=== PATIENT | male | born 1965 | race Caucasian/White ===

== ENCOUNTER 2016-05-07 21:46 | Inpatient (IN) | payer OTHER, MEDICARE ==
[~2016-05-07] VITALS: Ht 170.2 cm; Wt 113.4 kg
[~2016-05-07 21:46] MED LIST: ALDACTONE 25 MG25 MG PO; APAP500 MG; ASPIRIN81 M4 PO; ATIVAN0.5 MG; CARVEDILOL12.5 MG PO; CARVEDILOL25 M1 PO; CLINDAMYCIN PHO60 M2 TOP; COLACE100 M1 PO; DEMADEX20 M1 PO; DEMADEX20 MG PO; FIBER500 MG PO; HYDRALAZINE HCL25 MG PO; ISORDIL; LISINOPRIL10 M1 PO; MAGNESIUM OXID400 MG PO; OMEPRAZOLE20 M3 PO; OXYCODONE5 MG PO; PERCOCET MONOGRA5 MG PO; POTASSIUM CHLO10 ME4 PO; PRINIVIL 5MG5 MG PO; SERTRALINE HCL100 MG PO; TRAZODONE HCL150 M1 PO; TRAZODONE HCL50 MG PO; VALIUM5 M1 PO; VALIUM5 M2 PO; VITAMIN D2000 UNI1 PO
--- NOTE | 2016-05-07 22:14 | NUR ---
PT TO ED C/O CENTER CHEST PAIN, CONSTANT FOR 90 MINS. STATES PAIN "STARTED LOW IN MY HEART AND NOW IT'S IN THE CENTER" DENIES N/V. C/O LIGHTHEADEDNESS. "I DRANK 2 SHOTS OF VODKA TO MAKE THE PAIN GO AWAY, IT DIDN'T HELP" PMH OF CHF, PANCREATITIS, ACUTE RENAL FAILURE, DIVERTICULITIS. FEELS THAT LEGS AND ABDOMEN ARE MORE SWOLLEN THAN NORMAL. "FEEL MORE PRESSURE ON MY LUNGS" O2 SAT 95% ON RA. NSR HR 89 ON EKG. BLOODS DRAWN BY [facility] IN TRIAGE: SST, LAV, BLUE AND DÍAZ
--- NOTE | 2016-05-07 22:18 | ED CARDIAC/CP/PALPITATIONS ---
History of Present Illness General Chief Complaint: Chest Pain Stated Complaint: CHEST PAIN/ABD PAIN Source: patient, family, old records, friend Exam Limitations: no limitations Allergies Coded Allergies: NO KNOWN ALLERGIES (12/09/15) Reconcile Medications Aspirin (Aspirin*) 81 MG TAB.CHEW 81 MG PO DAILY heart health Carvedilol 25 MG TABLET 1 TAB PO BID HEART (Reported) Cholecalciferol (Vitamin D3) (Vitamin D) (Unknown Strength) TABLET (Unknown Dose) PO DAILY SUPPLEMENT (Reported) Clindamycin Phosphate 60 ML SOLUTION 1 MAUREEN TOP DAILY AFFECTED AREA(S) ( Reported) apply to affected area(s) Diazepam (Valium) 5 MG TABLET 1 TAB PO PRN MUSCLE SPASMS (Reported) Docusate Sodium (Colace) 100 MG CAPSULE 1 CAP PO PRN STOOL SOFTENER (Reported ) HYDRALAZINE HCL (Hydralazine HCl) 25 MG TABLET 1 TAB PO TID HEART HEALTH ( Reported) Isosorbide Dinitrate (Isordil (Sorbitrate 20MG)) 20 MG TABLET 1 TAB TID HEART HEALTH (Reported) Lisinopril 10 MG TABLET 1 TAB PO DAILY BLOOD PRESSURE Magnesium Oxide 400 MG TABLET 1 TAB PO BID VITAMIN SUPPORT (Reported) Methylcellulose (Fiber) (Unknown Strength) TABLET (Unknown Dose) PO DAILY SUPPLEMENT (Reported) Omeprazole 20 MG TABLET.DR 1 TAB PO BID GI (Reported) Potassium Chloride 10 MEQ TABLET.ER 2 TAB PO BID SUPPLEMENT (Reported) Sertraline HCl 100 MG TABLET 1.5 TAB PO DAILY MENTAL HEALTH (Reported) Spironolactone (Aldactone 25 MG Tablet) 25 MG TABLET 0.5 TAB PO DAILY HEART HEALTH (Reported) Torsemide (Demadex) 20 MG TABLET 1 TAB PO PRN DIURETIC (Reported) Trazodone HCl 150 MG TABLET 1 TAB PO QHS SLEEP (Reported) Triage Note: PT TO ED C/O CENTER CHEST PAIN, CONSTANT FOR 90 MINS. STATES PAIN "STARTED LOW IN MY HEART AND NOW IT'S IN THE CENTER" DENIES N/V. C/O LIGHTHEADEDNESS. "I DRANK 2 SHOTS OF VODKA TO MAKE THE PAIN GO AWAY, IT DIDN'T HELP" PMH OF CHF, PANCREATITIS, ACUTE RENAL FAILURE, DIVERTICULITIS. FEELS THAT LEGS AND ABDOMEN ARE MORE SWOLLEN THAN NORMAL. "FEEL MORE PRESSURE ON MY LUNGS" O2 SAT 95% ON RA. NSR HR 89 ON EKG. BLOODS DRAWN BY [facility] IN TRIAGE: SST, LAV, BLUE AND DÍAZ Triage Nurses Notes Reviewed? yes Onset: Abrupt Duration: minute(s): (90), constant Timing: recent history Quality/Severity: moderate, aching, pressure Location: central Radiation: no radiation Activities at Onset: rest Nitro Today/Relief: no nitro taken today Aspirin Today: no aspirin today Associated Symptoms: LEG SWELLING HPI: 51 Year old male past medical history significant for alcohol and cocaine abuse, systolic congestive heart failure secondary to cardiomyopathy diagnosed in 2010, ? AICD/PPM placement in 2013, nonsustained NSVT, pulmonary hypertension, tricuspid regurgitation, sinus tachycardia % Emergency room complaining of left-sided substernal chest pain as nonradiating constant aching throbbing for the past 90 minutes. He denies any nausea vomiting dizziness lightheadedness or palpitations no shortness of breath cough. The patient states he had 2 shots of vodka in an attempt to make the pain go away which did not help. Patient's desktop support specialist is Dr. Ha. The patient states he was at rest watching TV when the symptoms began there are no modifying factors or associated symptoms however he does report that his legs have been more swollen over the past few days he has been compliant with all of his medication however did not take an aspirin today. (YVON LITTLE,ANDREW) Vital Signs & Intake/Output Vital Signs & Intake/Output Vital Signs Date Time Temp Pulse Resp B/P Pulse O2 O2 Flow FiO2 Ox Delivery Rate 05/07 2258 97.4 88 20 124/92 96 Room Air Room Air 05/07 2206 97.2 89 20 95 Room Air ED Intake and Output 05/08 0000 05/07 1200 Intake Total Output Total Balance Patient 250 lb Weight Past History Travel History Traveled to [place] past 21 day No Medical History Any Pertinent Medical History? 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 No (ANDREW JOY) Review of Systems Review of Systems Constitutional: Reports: see HPI. All Other Systems: Reviewed and Negative Comments Review of systems: See HPI, All other systems negative. Constitutional, no chills no fever, no malaise HEENT: No visual changes no sore throat no congestion, no ear pain Cardiovascular: chest pain , no palpitation , no orthopnea ankle swelling Skin, no jaundice no rashes, no change in skin Respiratory: No dyspnea no cough no sputum GI: No nausea no vomiting, no diarrhea, : No dysuria Muscle skeletal: No joint pain, no joint swelling, no back pain, Neurologic: No numbness, no headache Psych: No stress no anxiety Heme/endocrine: No bruising no bleeding Immunology: No lymphadenopathy, (ANDREW JOY) Physical Exam Physical Exam General Appearance: well developed/nourished, alert, awake Cardiovascular: regular rate/rhythm Comments: Well-developed well-nourished person in no acute distress HEENT: Normal EENT exam; PERRL, EOMI,HEAD is atraumatic. moist mucous membranes. Neck: Supple, no lymphadenopathy, normal range of motion Back: Nontender, no CVA tenderness. Full range of motion Cardiovascular: Regular rate and rhythms no murmurs rubs Respiratory: Chest nontender.There were no bony deformities, no asymmetry. No respiratory distress. Patient speaking in full complete sentences. Breath sounds clear to auscultation bilaterally: NO W/R/R Abdomen: Soft, nontender nondistended, no appreciable organomegaly. Normal bowel sounds. No rebound/guarding,No ascites. Extremity: No edema, full range of motion of extremities Neuro: Alert oriented x3, motor sensory normal. There were no obvious focal neurologic abnormalities. Skin: No appreciable rash on exposed skin, skin is warm and dry. Psych: Mood and affect is normal, memory and judgment is normal. Core Measures ACS in differential dx? Yes ASA ordered for poss ACS? Yes-ordered Severe Sepsis Present: No Septic Shock Present: No (YVON LITTLE,ANDREW) Progress Differential Diagnosis: AMI, aortic dissection, atrial fibrillation, cholecystitis, CHF/pulm edema, costochondritis, hyperkalemia, hypovolemia, hyperthyroid, hyperventilation, musculoskeletal pain, myocarditis, pancreatitis, pericarditis, pneumonia, pneumothorax, PSVT, pulmonary embolism, PUD/GERD, PVCs/ PACs, respiratory failure, rib fracture, sepsis, unstable angina, V-fib/V-Tach, WPW syndrome Diagnostic Imaging: Viewed by Me: Radiology Read, CT Scan. Discussed w/RAD: Radiology Read, CT Scan. Radiology Impression: PATIENT: AHSAN LOPEZ PRESENT AGE: 51 PATIENT ACCOUNT NO: [id number] : 67 LOCATION: ER ORDERING PHYSICIAN: KARLI WEN MD SERVICE DATE: 05/07/16 EXAM TYPE: RAD - XRY-CHEST XRAY, PA AND LATERAL EXAMINATION: XR CHEST CLINICAL INFORMATION: Chest pain. COMPARISON: Chest x-ray 12/09/2015. TECHNIQUE: PA and lateral views of the chest were obtained. FINDINGS: Left pectoral dual-lead pacemaker with intact leads project over the right atrium and right ventricle. ACDF hardware projects over the lower cervical and upper thoracic spine. Lungs are symmetrically inflated. No focal consolidation, pleural effusion, or pneumothorax. Cardiac silhouette size is normal. No acute osseous findings. Old healed fracture of the distal left clavicle. IMPRESSION: No acute radiographic process within the chest. DICTATED BY: KARLI AUGUSTINE MD DATE/TIME DICTATED:2256 ELECTRICIAN HELPER:LATASHA DATE/TIME TRANSCRIBED:05/07/162256 CONFIDENTIAL, DO NOT COPY WITHOUT APPROPRIATE AUTHORIZATION. <Electronically signed in Other Vendor System> SIGNED BY: KARLI AUGUSTINE MD 05/07/167, PATIENT: AHSAN LOPEZ PRESENT AGE: 51 PATIENT ACCOUNT NO: [id number] : 67 LOCATION: ER ORDERING PHYSICIAN: ANDREW LITTLE SERVICE DATE: 05/07/16 EXAM TYPE: CAT - CT ABD & PELVIS W IV CONTRAST EXAMINATION: CT ABDOMEN AND PELVIS WITH CONTRAST CLINICAL INFORMATION: Left upper quadrant pain, rule out pancreatitis. COMPARISON: Abdominal ultrasound 12/11/2015. TECHNIQUE: Multidetector volumetric imaging was performed of the abdomen and pelvis before and after the IV administration of 100 mL of Omnipaque 300 intravenous contrast. Sagittal and coronal reformatted images were obtained on the technologist's workstation. FINDINGS: Pacemaker leads are partially imaged. The lung bases are clear. There is diffuse hepatic steatosis. There are inflammatory changes surrounding the pancreatic head extending inferiorly along the anterior margin of the second and third portions of the duodenum which do not appear thick-walled. Findings are most suggestive of acute pancreatitis. The pancreatic duct is normal in caliber and no obstructing calculi are identified. The spleen is enlarged, measuring 21 cm in AP diameter. The adrenal glands and gallbladder are normal. The kidneys exhibit symmetric nephrograms without evidence of hydronephrosis or nephrolithiasis. No focal renal lesions. Sigmoid diverticulosis without evidence of acute diverticulitis. The large and small bowel are normal in caliber without evidence of mechanical obstruction. No focal inflammatory changes adjacent to the large or the small bowel. The appendix is normal. There is no free air. No mesenteric or retroperitoneal adenopathy. The pelvic viscera are normal. No pelvic adenopathy. Small fat-containing left inguinal hernia. No free fluid within the pelvis. There are no acute osseous abnormalities. Multiple old left-sided rib fractures. The old left eighth and ninth rib fractures are ununited. Chronic bilateral L5 spondylolysis without spondylolisthesis. No significant soft tissue abnormality. IMPRESSION: - Inflammatory changes surrounding the pancreatic head and extending inferiorly along the anterior margin of the duodenum suggesting acute pancreatitis. No focal fluid collections. No obstructing calculi. - Hepatic steatosis. - Splenomegaly. - Sigmoid diverticulosis without evidence of acute diverticulitis. - Chronic bilateral L5 spondylolysis without spondylolisthesis. DICTATED BY: KARLI AUGUSTINE MD DATE/TIME DICTATED:05/08/16 ELECTRICIAN HELPER:LATASHA DATE/TIME TRANSCRIBED:05/08/16 CONFIDENTIAL, DO NOT COPY WITHOUT APPROPRIATE AUTHORIZATION. <Electronically signed in Other Vendor System> SIGNED BY: KARLI AUGUSTINE MD 05/08/16 0015 Initial ED EKG: normal sinus at 90, no acute ST segment changes normal axis Prior EKG: unchanged (11/2015) (YVON LITTLE,ANDREW) Plan of Care: Orders Procedure Date/time Status Patient Data 01/3 Active Add-on Test (ER Only) 05/07 2219 Active URINE DRUG SCREEN FOR ER ONLY 05/07 2215 Active TROPONIN LEVEL 05/07 2205 Complete LIPASE 05/07 2205 Complete ETHANOL 05/07 2205 Complete COMPREHENSIVE METABOLIC PANEL 05/07 2205 Complete CBC WITHOUT DIFFERENTIAL 05/07 2205 Complete AMYLASE 05/07 2205 Complete EKG 05/07 2151 Active Laboratory Tests 05/07/162213: Anion Gap 14, Estimated GFR > 60, BUN/Creatinine Ratio 8.2, Glucose 129 H, Calcium 9.7, Total Bilirubin 0.5, AST 64 H, ALT 65, Alkaline Phosphatase 67, Troponin I < 0.01, Total Protein 7.4, Albumin 4.5, Globulin 2.9, Albumin/ Globulin Ratio 1.6, Amylase 70, Lipase 1246 H, CBC w Diff NO MAN DIFF REQ, RBC 5.45, MCV 93.5, MCH 31.1 H, RDW 16.6 H, MPV 7.4, Gran % 72.8, Lymphocytes % 15.1 L, Monocytes % 8.0, Eosinophils % 3.0, Basophils % 1.1, Absolute Granulocytes 4.9, Absolute Lymphocytes 1.0 L, Absolute Monocytes 0.5, Absolute Eosinophils 0.2, Absolute Basophils 0.1, PUBS MCHC 33.3, Serum Alcohol 151.0 Labs ordered old records reviewed patient medicated with morphine 4 mg IV nitroglycerin sublingual aspirin Patient reports pain improved with nitroglycerin prior to being medicated with morphine. Discussed with him at length all of his lab results. The patient's lipase is unchanged from baseline recordings CT however was ordered chest x-ray ordered 05/07/2016 11:32:01 PM case and labs were discussed with the patient's desktop support specialist Dr. Ha who will admit the patient for serial troponins he advised to hold heparin unless troponin becomes positive. Case discussed with Dr. Wen who agrees with plan (ANDREW JOY) Departure Departure Time of Disposition: 2349 Disposition: STILL A PATIENT Condition: Stable Clinical Impression Primary Impression: Chest pain Secondary Impressions: Pancreatitis Referrals: Celina HA MD (PCP/Family) Departure Forms: Customer Survey General Discharge Information Observation Note Spoke With: Celina HA MD Place Patient In: Non-ED OBS Care Area Rationale for Observation: My rational for observation is as follows serial troponins trend labs IV a medication cardiology consult given patient's significant cardiac history premature discharge would BE medically harmful (ANDREW JOY) PA/CATALYST SUPERVISOR Co-Sign Statement Statement: ED Attending supervision documentation- [X] I saw and evaluated the patient. I have also reviewed all the pertinent lab results and diagnostic results. I agree with the findings and the plan of care as documented in the PA's/CATALYST SUPERVISOR's documentation. [] I have reviewed the ED Record and agree with the PA's/CATALYST SUPERVISOR's documentation. [] Additions or exceptions (if any) to the PAs/CATALYST SUPERVISOR's note and plan are summarized below: [] (DELL PIKE,KARLI Deleon) Critical Care Note Critical Care Note Critical Care Time: non-applicable (ANDREW JOY)
--- NOTE | 2016-05-07 22:20 | NUR ---
PT ON CM IN ER ROOM 4. ANABEL Cisneros AT BEDSIDE TO JEREMY PT
--- NOTE | 2016-05-07 22:24 | NUR ---
LABS DRAWN AND SENT BY THIS [facility] (BLUE,SST,LAV,DAVIS)
[2016-05-07 22:29] LABS: ABSOLUTE BASOPHIL COUNT 0.1 /CUMM (0.0-0.2); ABSOLUTE EOSINOPHIL COUNT 0.2 /CUMM (0.0-0.7); ABSOLUTE GRANULOCYTE CT 4.9 /CUMM (1.4-6.5); ABSOLUTE MONOCYTE COUNT 0.5 /CUMM (0.10-0.60); BASOPHIL % 1.1 % (0.0-2.0); GRANULOCYTE % 72.8 % (42.2-75.2); HEMATOCRIT 50.9 % (42-52); MEAN CORPUSCULAR HGB 31.1 PG (27.0-31.0); MEAN CORPUSCULAR HGB CONC 33.3 G/DL (33.0-37.0); MEAN CORPUSCULAR VOLUME 93.5 FL (80.0-94.0); MEAN PLATELET VOLUME 7.4 FL (7.4-10.4); PLATELET COUNT 137 /CUMM (130-400); RBC DISTRIBUTION WIDTH 16.6 % (11.5-14.5); RED BLOOD CELL CT 5.45 /CUMM (4.70-6.10); WHITE BLOOD CELL COUNT 6.7 /CUMM (4.8-10.8)
--- NOTE | 2016-05-07 22:52 | NUR ---
LINE EST #20 TO LEFT HAND. MEDICATED PER EMAR. PT TO RADIOLOGY FOR X-RAY AT THIS TIME.
--- NOTE | 2016-05-07 23:03 | RADIOLOGY REPORT ---
EXAMINATION: XR CHEST CLINICAL INFORMATION: Chest pain. COMPARISON: Chest x-ray 12/09/2015. TECHNIQUE: PA and lateral views of the chest were obtained. FINDINGS: Left pectoral dual-lead pacemaker with intact leads project over the right atrium and right ventricle. ACDF hardware projects over the lower cervical and upper thoracic spine. Lungs are symmetrically inflated. No focal consolidation, pleural effusion, or pneumothorax. Cardiac silhouette size is normal. No acute osseous findings. Old healed fracture of the distal left clavicle. IMPRESSION: No acute radiographic process within the chest.
--- NOTE | 2016-05-07 23:45 | NUR ---
PT TO CAT SCAN VIA STRETCHER.
--- NOTE | 2016-05-07 23:46 | NUR ---
PT BROTHER SHARRI WOULD LIKE TO BE CONTACTED WITH UPDATES [phone].
[2016-05-08] VITALS (7 sets, daily range): BP systolic 150–178; BP diastolic 84–120
--- NOTE | 2016-05-08 00:15 | CT SCAN REPORT ---
EXAMINATION: CT ABDOMEN AND PELVIS WITH CONTRAST CLINICAL INFORMATION: Left upper quadrant pain, rule out pancreatitis. COMPARISON: Abdominal ultrasound 12/11/2015. TECHNIQUE: Multidetector volumetric imaging was performed of the abdomen and pelvis before and after the IV administration of 100 mL of Omnipaque 300 intravenous contrast. Sagittal and coronal reformatted images were obtained on the technologist's workstation. FINDINGS: Pacemaker leads are partially imaged. The lung bases are clear. There is diffuse hepatic steatosis. There are inflammatory changes surrounding the pancreatic head extending inferiorly along the anterior margin of the second and third portions of the duodenum which do not appear thick-walled. Findings are most suggestive of acute pancreatitis. The pancreatic duct is normal in caliber and no obstructing calculi are identified. The spleen is enlarged, measuring 21 cm in AP diameter. The adrenal glands and gallbladder are normal. The kidneys exhibit symmetric nephrograms without evidence of hydronephrosis or nephrolithiasis. No focal renal lesions. Sigmoid diverticulosis without evidence of acute diverticulitis. The large and small bowel are normal in caliber without evidence of mechanical obstruction. No focal inflammatory changes adjacent to the large or the small bowel. The appendix is normal. There is no free air. No mesenteric or retroperitoneal adenopathy. The pelvic viscera are normal. No pelvic adenopathy. Small fat-containing left inguinal hernia. No free fluid within the pelvis. There are no acute osseous abnormalities. Multiple old left-sided rib fractures. The old left eighth and ninth rib fractures are ununited. Chronic bilateral L5 spondylolysis without spondylolisthesis. No significant soft tissue abnormality. IMPRESSION: - Inflammatory changes surrounding the pancreatic head and extending inferiorly along the anterior margin of the duodenum suggesting acute pancreatitis. No focal fluid collections. No obstructing calculi. - Hepatic steatosis. - Splenomegaly. - Sigmoid diverticulosis without evidence of acute diverticulitis. - Chronic bilateral L5 spondylolysis without spondylolisthesis.
--- NOTE | 2016-05-08 01:59 | History & Physical ---
GUERA PIKE,[facility] [place] 05/08/16 0158: General Information and HPI MD Statement: I have seen and personally examined AHSAN COLES S SR and documented this H&P. The patient is a 51 year old M who presented with a patient stated chief complaint of chest and abdominal pain. Source of Information: patient, old records Exam Limitations: no limitations History of Present Illness: Mr Coles is a 51 y/o M with PMHx of alcohol and cocaine abuse, HFrEF 2/2 nonischemic cardiomyopathy s/p AICD/PPM placement in 2013, diverticulitis, acute pancreatitis, GERD, HENRY, anxiety, depression and cervical spinal stenosis who presents with chest pain and abdominal pain which came on suddenly after his dinner of steak and salad on the night of current presentation. Chest pain is left sided and stabbing quality. Abdominal pain is bandlike around his upper abdomen. Per patient, pain is positional, subsiding for a couple of seconds at a time when he switches positions. He also endorses associated nausea but no vomiting. He took two shots of vodka hoping that it would make the pain go away but there was no improvement. He denies fever, chills, shortness of breath, palpitations, dysuria, diarrhea, constipation or lightheadedness. He uses cocaine on a regular basis and last use was two days ago. Of note, patient was hospitalized here at [place] in November 2015 for acute pancreatitis secondary to alcohol use and chest pain, felt to represent coronary vasospasm precipitated by cocaine intake. ECHO was performed at that time which had shown LVEF of 35-40%. Patient reports that his current pain is similar to prior episode. Allergies/Medications Allergies: Coded Allergies: NO KNOWN ALLERGIES (12/09/15) Home Med list Aspirin (Aspirin*) 81 MG TAB.CHEW 81 MG PO DAILY heart health Carvedilol 25 MG TABLET 1 TAB PO BID HEART (Reported) Cholecalciferol (Vitamin D3) (Vitamin D) (Unknown Strength) TABLET (Unknown Dose) PO DAILY SUPPLEMENT (Reported) Clindamycin Phosphate 60 ML SOLUTION 1 MAUREEN TOP DAILY AFFECTED AREA(S) ( Reported) apply to affected area(s) Diazepam (Valium) 5 MG TABLET 1 TAB PO PRN MUSCLE SPASMS (Reported) Docusate Sodium (Colace) 100 MG CAPSULE 1 CAP PO PRN STOOL SOFTENER (Reported ) HYDRALAZINE HCL (Hydralazine HCl) 25 MG TABLET 1 TAB PO TID HEART HEALTH ( Reported) Isosorbide Dinitrate (Isordil (Sorbitrate 20MG)) 20 MG TABLET 1 TAB TID HEART HEALTH (Reported) Lisinopril 10 MG TABLET 1 TAB PO DAILY BLOOD PRESSURE Magnesium Oxide 400 MG TABLET 1 TAB PO BID VITAMIN SUPPORT (Reported) Methylcellulose (Fiber) (Unknown Strength) TABLET (Unknown Dose) PO DAILY SUPPLEMENT (Reported) Omeprazole 20 MG TABLET.DR 1 TAB PO BID GI (Reported) Potassium Chloride 10 MEQ TABLET.ER 2 TAB PO BID SUPPLEMENT (Reported) Sertraline HCl 100 MG TABLET 1.5 TAB PO DAILY MENTAL HEALTH (Reported) Spironolactone (Aldactone 25 MG Tablet) 25 MG TABLET 0.5 TAB PO DAILY HEART HEALTH (Reported) Torsemide (Demadex) 20 MG TABLET 1 TAB PO PRN DIURETIC (Reported) Trazodone HCl 150 MG TABLET 1 TAB PO QHS SLEEP (Reported) Past History Travel History Traveled to [place] past 21 day No Medical History Neurological: NONE EENT: NONE Cardiovascular: AFIB, cardiomyopathy, hypertension, systolic CHF Respiratory: obstructive sleep apnea Gastrointestinal: diverticulitis, GERD, pancreatitis Hepatic: NONE Renal: unknown kidney problem as a child Musculoskeletal: spinal stenosis Psychiatric: alcohol dependence, anxiety, depression, substance abuse Endocrine: NONE Blood Disorders: NONE Cancer(s): NONE 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 Home Who Do You Live With? multiple family members Services at Home: None Primary Language: Nigerien Smoking Status: Current Everyday Smoker (1 PPD for ~12 Years) ETOH Use: heavy use Illicit Drug Use: cocaine Functional Ability ADLs Independent: dressing, eating, toileting, bathing. Ambulation: independent IADLs Independent: shopping, housework, finances, food prep, telephone, transportation , medication admin. 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 EENTM: Reports: see HPI. Cardiovascular: Reports: chest pain. Denies: palpitations. Respiratory: Denies: short of breath. GI: Reports: abdominal pain, nausea. Denies: constipation, diarrhea, vomiting. Genitourinary: Denies: dysuria. Musculoskeletal: Reports: no symptoms. Skin: Reports: no symptoms. Neurological/Psychological: Reports: no symptoms. Hematologic/Endocrine: Reports: no symptoms. Immunologic/Allergic: Reports: no symptoms. All Other Systems: Reviewed and Negative Exam & Diagnostic Data Last 24 Hrs of Vital Signs/I&O Vital Signs Date Time Temp Pulse Resp B/P Pulse O2 O2 Flow FiO2 Ox Delivery Rate 05/08 0400 97.7 101 24 177/90 05/08 0346 97.7 101 24 177/90 94 Room Air 05/08 0310 98.0 89 16 144/88 95 Room Air 05/07 2258 97.4 88 20 124/92 96 Room Air Room Air 05/07 2206 97.2 89 20 95 Room Air Intake & Output 05/08 0800 05/08 0000 05/07 1600 Intake Total Output Total Balance Patient 113.398 kg 113.398 kg Weight Physical Exam General Appearance Alert, Oriented X3, No Acute Distress HEENT Mucous Membr. moist/pink Cardiovascular Regular Rate, Normal S1, Normal S2, Tenderness to Palpation on Left Chest Wall Lungs Clear to Auscultation Abdomen Soft, Tenderness to Palpation Most Pronounced at Bilateral Upper Quadrants, Positive Bowel Sounds Extremities No Clubbing, No Cyanosis, No Edema Last 24 Hrs of Labs/Huber: Laboratory Tests 05/08/16 0252: Urine Opiates Screen 2957.00 H, Methadone Screen < 40, Barbiturate Screen < 60, Ur Phencyclidine Scrn < 6.00, Amphetamines Screen < 100, U Benzodiazepines Scrn 108, Urine Cocaine Screen > 1000 H, Urine Cannabis Screen < 5.00 05/07/16 2214: Anion Gap 14, Estimated GFR > 60, BUN/Creatinine Ratio 8.2, Glucose 129 H, Calcium 9.7, Total Bilirubin 0.5, AST 64 H, ALT 65, Alkaline Phosphatase 67, Troponin I < 0.01, Total Protein 7.4, Albumin 4.5, Globulin 2.9, Albumin/ Globulin Ratio 1.6, Amylase 70, Lipase 1246 H, CBC w Diff NO MAN DIFF REQ, RBC 5.45, MCV 93.5, MCH 31.1 H, RDW 16.6 H, MPV 7.4, Gran % 72.8, Lymphocytes % 15.1 L, Monocytes % 8.0, Eosinophils % 3.0, Basophils % 1.1, Absolute Granulocytes 4.9, Absolute Lymphocytes 1.0 L, Absolute Monocytes 0.5, Absolute Eosinophils 0.2, Absolute Basophils 0.1, PUBS MCHC 33.3, Serum Alcohol 151.0 Diagnostic Data EKG Results Normal sinus rhythm HR 89 Poor R wave progression No significant change since previous tracing QTc 439 CXR Results No acute radiographic process within the chest. Other Results CT ABDOMEN/PELVIS (05/08/15): - Inflammatory changes surrounding the pancreatic head and extending inferiorly along the anterior margin of the duodenum suggesting acute pancreatitis. No focal fluid collections. No obstructing calculi. - Hepatic steatosis. - Splenomegaly. - Sigmoid diverticulosis without evidence of acute diverticulitis. - Chronic bilateral L5 spondylolysis without spondylolisthesis. Assessment/Plan Assessment: 51 y/o M with PMHx of alcohol and cocaine abuse, HFrEF 2/2 nonischemic cardiomyopathy s/p AICD/PPM placement in 2013 and acute pancreatitis who presents with chest pain and abdominal pain, found to have elevated lipase and evidence of acute pancreatitis on CT Abdomen/Pelvis. #Chest pain: Most likely coronary vasospasm precipitated by cocaine use. Concerning for ACS given significant cardiac history and cocaine abuse. EKG with no ST-T wave abnormalities. First set of troponins negative. * Admit to the telemetry floor for continuous cardiac monitoring. * Serial EKG and troponins. * Continue home daily low dose aspirin. * Holding prior to admission beta-sayra, carvedilol 25 mg PO BID in the setting of recent cocaine use. #Acute pancreatitis: Presented with epigastric pain. Lipase elevated at 1246. Confirmed by CT Abdomen/Pelvis. BISAP score 0 corresponding to <1% mortality. Likely secondary to alcohol use. No evidence of gallstones on CT Abdomen/Pelvis. Prior episode of acute pancreatitis in November 2015. * Keep patient NPO. * LR @ 75 cc/hr. * Zofran PRN for nausea. * Pain management as below. * If clinical status deteriorates, consider surgical consult to evaluate need for surgical intervention. #HFrEF: S/p AICD/PPM placement in 2013. Most recent ECHO in November 2015 with LVEF estimated at 35-40%. * Monitor strict I/Os. * Monitor closely for signs of volume overload given aggressive IV hydration. #Polysubstance abuse: Utox positive for cocaine and opiates. Heavy alcohol use. Per patient, his last drink was on the afternoon of current presentation and last cocaine use was two days prior. * Consider social work consult after medical stabilization. * [facility] protocol to monitor for signs of alcohol withdrawal. #HTN: BP elevated to 177/90 most likely secondary to pain and cocaine use. * Continue prior to admission hydralazine 25 mg PO TID, Isordil 20 mg PO TID and spironolactone 12.5 mg PO QD. #Depression: * Continue prior to admission Zoloft 150 mg PO QD. #Insomnia: * Continue prior to admission trazodone 150 mg PO QHS PRN. Diet: NPO Fluids: LR @ 75 cc/hr Pain: Tylenol 650 mg PO Q6H PRN for mild pain (scale 1-3) Tylenol 1 g IV Q12H PRN for moderate pain (scale 4-6) Dilaudid 0.5 mg IV Q6H PRN for severe pain (scale 7-10) DVT PPx: HSQ and ALPs CODE: FULL As Ranked By This Provider Problem List: 1. Cocaine abuse 2. Polysubstance abuse 3. Chest pain 4. Alcohol dependence 5. Acute pancreatitis 6. HFrEF (heart failure with reduced ejection fraction) 7. Hypertension Core Measures/Miscellaneous Acute Coronary Syndrome ACS Diagnosis: No Cerebrovascular Accident CVA/TIA Diagnosis: No Congestive Heart Failure CHF Diagnosis: No Venous Thromboembolism VTE Risk Factors: Acute medical illness, Age > 40, Obesity, Smoking VTE Prophylaxis Ordered Inpt: Mech & Pharm No Mech VTE prophylaxis d/t: No contraindications No VTE Pharm Prophylaxis d/t: No contraindications VTE Diagnosis: No VTE Type: NONE VTE Confirmed by (Test): NONE Severe Sepsis Severe Sepsis Present: No Septic Shock Septic Shock Present: No Miscellaneous Documentation Attending Case Discussed With: Celina HA MD Primary Care Physician: Celina HA MD Patient sees these Specialists Electrical Line Worker Jermaine Alvarez MD at [place] Level of Patient Care: Telemetry JUSTIN ALVAREZ MD 05/08/16 0415: Resident Review Statement Resident Statement: examined this patient, discussed with phd intern, agreed with phd intern Other Findings: 51 YO M with history of chf, pancreatiits, acute renal failure, diverticulitis, AICD/PPM presents from home c/o of sudden onset of chest pain and abdominal pain that started 90 minutes before arrival to ER. Reports drinking half pint of vodka today as he normally does, along with smoking 1PPD of cigarettes. Denies using cocaine today, reports last use 2 days ago. Reports ongoing nausea with chest pain and abdominal pain that is located across the left side of his chest along with a band like feeling over his abdomen. Denies palpitaions, lightheadness, shortness of breath. Denies diarrhea and constipation. Reports a similar episode in November 2015. Chest pain Rule out ACS, get serial troponins and ekgs, will start aspirin, will hold off on b-sayra at this time due to cocaine use. Strictly monitor Intake and Output along with IVF as patient has low EF 35-40%. Acute Pancreatitis Likley secondary to ETOH use, no evidence of gall stones. WBC WNL, afebrile, will treat symptomatically with zofran for nausea, pain control, and rehydration. will need to monitor closely as low EF, will start LR @75cc hr, calcium level WNL. will keep npo for now. BISAP score 0. worsening clinical status may benefit from surgical consultation to assess need for surgical intervention. Alcohol dependence monitor CIWAs closely, history of ETOH use on a daily basis. Last drink was this afternoon. may need to use ativan/librium per protocol. Hypertension BP elevated which may be due to pain. Will start BP medications. Substance Abuse Tox screen: Urine opiates screen 2957, Urine cocaine screen >1000 will need social work consult once immediate medical issues are adressed. MELONIE HA MD 05/08/16 1613: Attending MD Review Statement Attending Statement Attending MD Statement: examined this patient, discuss w/resident/PA/CLASS B DRIVER, agreed w/resident/PA/CLASS B DRIVER, discussed with family, reviewed EMR data (avail), discussed with nursing, discussed with case mgmt, reviewed images, amended to note Attending Assessment/Plan: The patient was seen and examined by me. The case was discussed with the house staff. All laboratories and tests and ECGs were reviewed by myself. The patient is a 51-year-old male well-known to me with a history of prior nonischemic cardio myopathy and AICD implantation. The patient now presents to the hospital with recurrent symptoms of discomfort. He is admitted for further evaluation of his cardiac status and for evaluation and treatment of pancreatitis, likely related to recurrent alcohol use. Recommendations: -1 N. telemetry admission -Serial troponins -Serial ECGs -Echocardiogram to reassess left ventricular function and wall motion -Nothing by mouth -IV fluids as discussed with close monitoring of intakes, outputs, etc. -Close monitoring for DTs -Further plans after the next 24 hours. -
--- NOTE | 2016-05-08 02:50 | NUR ---
PT MEDICATED WITH 4 MG ZOFRAN AND 0.4 MG DILAUDID FOR PAIN LR INFUSING AT 75 ML/HR.
--- NOTE | 2016-05-08 03:06 | NUR ---
REPORT GIVEN TO KAREN LOPEZ
--- NOTE | 2016-05-08 05:21 | NUR ---
PT ARRIVED TO FLOOR AT 0325. AMBULATED TO BED INDEPENDENTLY. STEADY GAIT. AGGITATED BC HE DIDNT NOT HAVE A PRIVATE ROOM. IMPULSIVE, REFUSES BED ALARM. ORIENTED TO FLOOR AND CALL SHARPE. CIWA SCORE OF 7. VSS. WILL MONITOR.
[2016-05-08 10:25] LABS: ABSOLUTE BASOPHIL COUNT 0 /CUMM (0.0-0.2); ABSOLUTE EOSINOPHIL COUNT 0.2 /CUMM (0.0-0.7); ABSOLUTE GRANULOCYTE CT 4.8 /CUMM (1.4-6.5); ABSOLUTE LYMPH COUNT 0.7 /CUMM (1.2-3.4); ABSOLUTE MONOCYTE COUNT 0.4 /CUMM (0.10-0.60); BASOPHIL % 0.2 % (0.0-2.0); EOSINOPHIL % 2.5 % (0-5); GRANULOCYTE % 79.6 % (42.2-75.2); HEMATOCRIT 52.6 % (42-52); MEAN CORPUSCULAR HGB 31.5 PG (27.0-31.0); MEAN CORPUSCULAR HGB CONC 33.4 G/DL (33.0-37.0); MEAN CORPUSCULAR VOLUME 94.4 FL (80.0-94.0); RED BLOOD CELL CT 5.57 /CUMM (4.70-6.10)
[2016-05-08 12:02] LABS: PLATELET COUNT 109 /CUMM (130-400)
--- NOTE | 2016-05-09 07:25 | PN- Housestaff ---
Subjective Follow-up For: Chest pain Acute pancreatitis Subjective: Seen and examined this point. He was lying in bed in mild distress. Reported feeling nauseous, on and off chest pain, epigastric pain. Denies any dizziness dizziness, palpitation, remains afebrile, other vitals within normal limits. Review of Systems Constitutional: Reports: see HPI. Objective Last 24 Hrs of Vital Signs/I&O Vital Signs Date Time Temp Pulse Resp B/P Pulse O2 O2 Flow FiO2 Ox Delivery Rate 05/09 0744 97.8 80 20 162/92 91 Room Air 05/08 2300 98.4 80 16 168/84 98 Room Air 05/08 2106 80 168/84 05/08 2106 80 168/84 05/08 1603 77 150/90 05/08 1603 97.2 86 20 150/90 92 Room Air 05/08 1602 77 150/90 05/08 1043 150/92 Intake & Output 05/09 1600 05/09 0800 05/09 0000 Intake Total 800 900 Output Total 400 650 Balance 400 250 Intake, IV 800 800 Intake, Oral 0 100 Number 0 0 Bowel Movements Output, Urine 400 650 Physical Exam General Appearance: Alert, Oriented X3, Cooperative, Mild Distress Cardiovascular: Regular Rate, Normal S1, Normal S2, No Murmurs Lungs: Clear to Auscultation, Normal Air Movement Abdomen: Normal Bowel Sounds, Soft, tenderness in epigastric area Extremities: No Clubbing, No Cyanosis, No Edema Current Medications: Current Medications Sig/Nadia Start time Last Medication Dose Route Stop Time Status Admin Acetaminophen 650 MG Q6P PRN 05/08 0300 AC 05/08 PO 1604 Acetaminophen 1,000 MG Q12P PRN 05/08 0300 IV Aspirin 81 MG DAILY 05/08 1000 AC 05/08 PO 0832 Guaifenesin 10 ML Q6P PRN 05/08 1700 AC 05/08 PO 1709 Heparin Sodium 5,000 UNIT Q8 05/08 0600 05/09 (Porcine) SC 0557 Hydralazine HCl 25 MG TID 05/08 1000 AC 05/08 PO 2106 Hydromorphone HCl 0.5 MG Q6P PRN 05/08 0300 AC 05/08 IV 0849 Isosorbide Dinitrate 20 MG TID 05/08 1000 AC 05/08 PO 2106 Lactated Ringer's 1,000 ML Q13H 05/08 0115 05/09 IV 05/09 1314 0302 Lorazepam 0 Q1P PRN 05/08 1700 05/09 IV 0210 Magnesium Oxide 400 MG BID 05/08 1000 AC 05/08 PO 2106 Omeprazole 20 MG DAILY AC 05/08 0700 AC 05/09 PO 0557 Sertraline HCl 150 MG DAILY 05/08 1000 AC 05/08 PO 0833 Spironolactone 12.5 MG DAILY 05/08 1000 AC 05/08 PO 0832 Trazodone HCl 150 MG DAILY NEEDED PRN 05/08 0400 AC 05/08 PO 2120 Last 24 Hrs of Lab/Huber Results Last 24 Hrs of Labs/Mics: Laboratory Tests 05/09/16 0650: Anion Gap 9, Estimated GFR > 60, BUN/Creatinine Ratio 9.0, CBC w Diff NO MAN DIFF REQ, RBC 5.17, MCV 94.1 H, MCH 31.5 H, RDW 16.3 H, MPV 8.2, Gran % 80.0 H, Lymphocytes % 9.4 L, Monocytes % 7.7, Eosinophils % 2.5, Basophils % 0.4, Absolute Granulocytes 3.4, Absolute Lymphocytes 0.4 L, Absolute Monocytes 0.3, Absolute Eosinophils 0.1, Absolute Basophils 0, PUBS MCHC 33.5 Assessment/Plan Assessment: 51 y/o M with PMHx of alcohol and cocaine abuse, HFrEF 2/2 nonischemic cardiomyopathy s/p AICD/PPM placement in 2013 and acute pancreatitis who presents with chest pain and abdominal pain, found to have elevated lipase and evidence of acute pancreatitis on CT Abdomen/Pelvis. #Chest pain: Most likely coronary vasospasm precipitated by cocaine use. Concerning for ACS given significant cardiac history and cocaine abuse. EKG with no ST-T wave abnormalities. First set of troponins negative. * Continuous cardiac monitoring. * Serial EKG and troponins. So far no acute findings. * Continue home daily low dose aspirin. * Holding prior to admission beta-sayra, carvedilol 25 mg PO BID in the setting of recent cocaine use. #Acute pancreatitis: Presented with epigastric pain. Lipase elevated at 1246. Confirmed by CT Abdomen/Pelvis. BISAP score 0 corresponding to <1% mortality. Likely secondary to alcohol use. No evidence of gallstones on CT Abdomen/Pelvis. Prior episode of acute pancreatitis in November 2015. * Patient NPO for now as he has nausea and epigastric pain. * LR @ 75 cc/hr. * Zofran PRN for nausea. * Pain management as below. * If clinical status deteriorates, consider surgical consult to evaluate need for surgical intervention. #HFrEF: S/p AICD/PPM placement in 2013. Most recent ECHO in November 2015 with LVEF estimated at 35-40%. * Monitor strict I/Os. * Monitor closely for signs of volume overload given aggressive IV hydration. #Polysubstance abuse: Utox positive for cocaine and opiates. Heavy alcohol use. Per patient, his last drink was on the afternoon of current presentation and last cocaine use was two days prior. * Social work consult after medical stabilization. * [facility] protocol to monitor for signs of alcohol withdrawal. #HTN: BP elevated to 177/90 most likely secondary to pain and cocaine use. * Continue prior to admission hydralazine 25 mg PO TID, Isordil 20 mg PO TID and spironolactone 12.5 mg PO QD. #Depression: * Continue prior to admission Zoloft 150 mg PO QD. #Insomnia: * Continue prior to admission trazodone 150 mg PO QHS PRN. Diet: NPO Fluids: LR @ 75 cc/hr DVT PPx: HSQ and ALPs CODE: FULL Problem List: 1. Chest pain 2. Full code status 3. DVT prophylaxis 4. Acute pancreatitis 5. HFrEF (heart failure with reduced ejection fraction) Pain Ratin Pain Location: Epigastric area Pain Goal: Remain pain free Pain Plan: Tylenol 650 mg PO Q6H PRN for mild pain (scale 1-3) Tylenol 1 g IV Q12H PRN for moderate pain (scale 4-6) Dilaudid 0.5 mg IV Q6H PRN for severe pain (scale 7-10) Tomorrow's Labs & Rationales: CBC and BEP for hematocrit and lites monitoring insetting of acute pancreatitis
[2016-05-09 07:44] VITALS: BP 162/92
[2016-05-09 08:39] LABS: ABSOLUTE BASOPHIL COUNT 0 /CUMM (0.0-0.2); ABSOLUTE EOSINOPHIL COUNT 0.1 /CUMM (0.0-0.7); ABSOLUTE GRANULOCYTE CT 3.4 /CUMM (1.4-6.5); ABSOLUTE LYMPH COUNT 0.4 /CUMM (1.2-3.4); ABSOLUTE MONOCYTE COUNT 0.3 /CUMM (0.10-0.60); BASOPHIL % 0.4 % (0.0-2.0); EOSINOPHIL % 2.5 % (0-5); HEMATOCRIT 48.6 % (42-52); MEAN CORPUSCULAR HGB 31.5 PG (27.0-31.0); MEAN CORPUSCULAR HGB CONC 33.5 G/DL (33.0-37.0); MEAN CORPUSCULAR VOLUME 94.1 FL (80.0-94.0); MEAN PLATELET VOLUME 8.2 FL (7.4-10.4); PLATELET COUNT 101 /CUMM (130-400); RBC DISTRIBUTION WIDTH 16.3 % (11.5-14.5); RED BLOOD CELL CT 5.17 /CUMM (4.70-6.10); WHITE BLOOD CELL COUNT 4.2 /CUMM (4.8-10.8)
[2016-05-09 16:31] VITALS: BP 148/100
--- NOTE | 2016-05-09 18:06 | PN- Cardiology ---
Subjective Subjective: The patient complains of mild nausea and epigastric discomfort. No lightheadedness or dizziness. No palpitations. Or vomiting. Objective Vital Signs and I&Os Vital Signs Date Time Temp Pulse Resp B/P Pulse O2 O2 Flow FiO2 Ox Delivery Rate 05/09 1631 97.5 101 20 148/100 94 Room Air 05/09 1621 97.8 90 20 160/72 05/09 1620 97.8 90 20 160/72 05/09 1454 90 05/09 1046 102 160/72 05/09 1037 102 05/09 0800 93 Nasal 1.0L Cannula 05/09 0744 97.8 80 20 162/92 91 Room Air 05/08 2300 98.4 80 16 168/84 98 Room Air 05/08 2106 80 168/84 05/08 2106 80 168/84 Intake & Output 05/09 1600 05/09 0800 05/09 0000 05/08 1600 05/08 0800 05/08 0000 Intake Total 300 325 122 3790 225 Output Total 200 400 650 400 Balance 100 400 250 680 225 Intake, IV 300 800 800 600 225 Intake, Oral 0 100 480 Number 0 0 Bowel Movements Output, Urine 200 400 650 400 Patient 250 lb 250 lb Weight Physical Exam: Gen: The patient is in no acute distress HEENT: Normal nose, ears, and oropharynx. Pupils equal bilaterally. Conjunctiva normal. Neck: Supple with no JVD, no masses, and no thyromegaly Lungs: Clear to auscultation with normal respiratory effort Heart: RRR, S1, S2, 2/6 systolic murmur. No peripheral edema, 2+ pulses in the lower extremities bilaterally Abdomen: Soft, nontender, no masses. No hepatomegaly. No splenomegaly Extremities: No clubbing or cyanosis. Normal muscle strength in the upper and lower extremities Skin: Normal skin turgor with no skin ulcers or lesions noted. Results Last 48 Hrs of Labs/Mics: Laboratory Tests 05/09/16 0650: Anion Gap 9, Estimated GFR > 60, BUN/Creatinine Ratio 9.0, CBC w Diff NO MAN DIFF REQ, RBC 5.17, MCV 94.1 H, MCH 31.5 H, RDW 16.3 H, MPV 8.2, Gran % 80.0 H, Lymphocytes % 9.4 L, Monocytes % 7.7, Eosinophils % 2.5, Basophils % 0.4, Absolute Granulocytes 3.4, Absolute Lymphocytes 0.4 L, Absolute Monocytes 0.3, Absolute Eosinophils 0.1, Absolute Basophils 0, PUBS MCHC 33.5 05/08/16 0710: Anion Gap 10, Estimated GFR > 60, BUN/Creatinine Ratio 11.1, Troponin I < 0.01, CBC w Diff NO MAN DIFF REQ, RBC 5.57, MCV 94.4 H, MCH 31.5 H, RDW 17.0 H, MPV 8.0, Gran % 79.6 H, Lymphocytes % 10.9 L, Monocytes % 6.8, Eosinophils % 2.5, Basophils % 0.2, Absolute Granulocytes 4.8, Absolute Lymphocytes 0.7 L, Absolute Monocytes 0.4, Absolute Eosinophils 0.2, Absolute Basophils 0, PUBS MCHC 33.4 05/08/16 0252: Urine Opiates Screen 2957.00 H, Methadone Screen < 40, Barbiturate Screen < 60, Ur Phencyclidine Scrn < 6.00, Amphetamines Screen < 100, U Benzodiazepines Scrn 108, Urine Cocaine Screen > 1000 H, Urine Cannabis Screen < 5.00 05/07/16 2214: Anion Gap 14, Estimated GFR > 60, BUN/Creatinine Ratio 8.2, Glucose 129 H, Calcium 9.7, Total Bilirubin 0.5, AST 64 H, ALT 65, Alkaline Phosphatase 67, Troponin I < 0.01, Total Protein 7.4, Albumin 4.5, Globulin 2.9, Albumin/ Globulin Ratio 1.6, Amylase 70, Lipase 1246 H, CBC w Diff NO MAN DIFF REQ, RBC 5.45, MCV 93.5, MCH 31.1 H, RDW 16.6 H, MPV 7.4, Gran % 72.8, Lymphocytes % 15.1 L, Monocytes % 8.0, Eosinophils % 3.0, Basophils % 1.1, Absolute Granulocytes 4.9, Absolute Lymphocytes 1.0 L, Absolute Monocytes 0.5, Absolute Eosinophils 0.2, Absolute Basophils 0.1, PUBS MCHC 33.3, Serum Alcohol 151.0 Assessment/Plan Assessment/Plan Assessment: 1. Nonischemic cardiomyopathy 2. ICD 3. Acute pancreatitis Plan: * NPO * Echocardiogram pending * IV fluids * Monitor for alcohol withdrawal Continue telemetry? Yes
[2016-05-10] VITALS: BP 162/80
[2016-05-10 07:48] LABS: ABSOLUTE BASOPHIL COUNT 0 /CUMM (0.0-0.2); ABSOLUTE EOSINOPHIL COUNT 0.1 /CUMM (0.0-0.7); ABSOLUTE GRANULOCYTE CT 3.7 /CUMM (1.4-6.5); ABSOLUTE LYMPH COUNT 0.5 /CUMM (1.2-3.4); ABSOLUTE MONOCYTE COUNT 0.4 /CUMM (0.10-0.60); BASOPHIL % 0.6 % (0.0-2.0); EOSINOPHIL % 2.7 % (0-5); GRANULOCYTE % 78.5 % (42.2-75.2); HEMATOCRIT 48.7 % (42-52); MEAN CORPUSCULAR HGB 31.4 PG (27.0-31.0); MEAN CORPUSCULAR HGB CONC 33.5 G/DL (33.0-37.0); MEAN CORPUSCULAR VOLUME 93.8 FL (80.0-94.0); PLATELET COUNT 112 /CUMM (130-400); RBC DISTRIBUTION WIDTH 15.9 % (11.5-14.5); RED BLOOD CELL CT 5.19 /CUMM (4.70-6.10); WHITE BLOOD CELL COUNT 4.8 /CUMM (4.8-10.8)
--- NOTE | 2016-05-10 08:01 | PN- Housestaff ---
Subjective Follow-up For: Acute pancreatitis Chest pain Tele-Events Since Last Visit: Sinus rhythm, heart rate between 69-82 daily , no acute events overnight Subjective: Patient seen and examined this morning. He was lying comfortably in bed in no acute distress. He was transitioned to clear liquids last night, he reported that he has been able to tolerate clear liquids well without any nausea, vomiting, a aggravating epigastric pain, febrile, blood pressure towards the higher side Review of Systems Constitutional: Denies: chills, fever. Cardiovascular: Denies: chest pain, orthopena, palpitations. Respiratory: Denies: cough, short of breath, sputum production. Gastrointestinal: Reports: see HPI, abdominal pain. Denies: constipation, diarrhea, nausea, vomiting. Genitourinary: Denies: dysuria, frequency. Objective Last 24 Hrs of Vital Signs/I&O Vital Signs Date Time Temp Pulse Resp B/P Pulse O2 O2 Flow FiO2 Ox Delivery Rate 05/10 0853 97.1 55 16 150/104 96 Room Air 05/10 0000 Room Air 05/10 0000 98.4 91 18 162/80 92 Room Air 05/09 210 84 162/80 05/09 2108 84 162/80 05/09 1631 97.5 101 20 148/100 94 Room Air 05/09 1621 97.8 90 20 160/72 05/09 1620 97.8 90 20 160/72 05/09 1454 90 05/09 1046 102 160/72 05/09 1037 102 Intake & Output 05/10 1600 05/10 0800 05/10 0000 Intake Total 150 650 Output Total Balance 150 650 Intake, IV 0 0 Intake, Oral 150 650 Number 0 0 Bowel Movements Physical Exam General Appearance: Alert, Oriented X3, Cooperative, No Acute Distress Cardiovascular: Regular Rate, Normal S1, Normal S2, No Murmurs Lungs: Clear to Auscultation, Normal Air Movement Abdomen: Normal Bowel Sounds, Soft, No Tenderness Extremities: No Clubbing, No Cyanosis, No Edema Current Medications: Current Medications Sig/Nadia Start time Last Medication Dose Route Stop Time Status Admin Acetaminophen 650 MG .STK-MED ONE 05/09 2027 DC PO 05/09 2028 Acetaminophen 650 MG Q6P PRN 05/08 0300 AC 05/08 PO 1604 Acetaminophen 1,000 MG Q12P PRN 05/08 0300 AC IV Aspirin 81 MG DAILY 05/08 1000 AC 05/09 PO 1046 Guaifenesin 10 ML Q6P PRN 05/08 1700 AC 05/10 PO 0100 Heparin Sodium 5,000 UNIT Q8 05/08 0600 AC 05/10 (Porcine) SC 0617 Hydralazine HCl 25 MG TID 05/08 1000 AC 05/09 PO 2108 Hydromorphone HCl 0.5 MG Q6P PRN 05/08 0300 AC 05/08 IV 0849 Isosorbide Dinitrate 20 MG TID 05/08 1000 AC 05/09 PO 2108 Lactated Ringer's 1,000 ML Q13H 05/08 0115 DC 05/09 IV 05/09 1314 0302 Lorazepam 0 Q1P PRN 05/08 1700 AC 05/10 IV 0615 Magnesium Oxide 400 MG BID 05/08 1000 AC 05/09 PO 2108 Omeprazole 20 MG DAILY AC 05/08 0700 AC 05/10 PO 0617 Sertraline HCl 150 MG DAILY 05/08 1000 AC 05/09 PO 1045 Spironolactone 12.5 MG DAILY 05/08 1000 AC 05/09 PO 1046 Trazodone HCl 150 MG .STK-MED ONE 05/09 2033 DC PO 05/09 2034 Trazodone HCl 150 MG DAILY NEEDED PRN 05/08 0400 AC 05/09 PO 2130 Last 24 Hrs of Lab/Huber Results Last 24 Hrs of Labs/Mics: Laboratory Tests 05/10/16 0645: Anion Gap 10, Estimated GFR > 60, BUN/Creatinine Ratio 9.0, CBC w Diff NO MAN DIFF REQ, RBC 5.19, MCV 93.8, MCH 31.4 H, RDW 15.9 H, MPV 8.0, Gran % 78.5 H, Lymphocytes % 10.2 L, Monocytes % 8.0, Eosinophils % 2.7, Basophils % 0.6, Absolute Granulocytes 3.7, Absolute Lymphocytes 0.5 L, Absolute Monocytes 0.4, Absolute Eosinophils 0.1, Absolute Basophils 0, PUBS MCHC 33.5 Assessment/Plan Assessment: 51 y/o M with PMHx of alcohol and cocaine abuse, HFrEF 2/2 nonischemic cardiomyopathy s/p AICD/PPM placement in 2013 and acute pancreatitis who presents with chest pain and abdominal pain, found to have elevated lipase and evidence of acute pancreatitis on CT Abdomen/Pelvis. #Chest pain: Most likely coronary vasospasm precipitated by cocaine use. Concerning for ACS given significant cardiac history and cocaine abuse. EKG with no ST-T wave abnormalities. First set of troponins negative. * Continuous cardiac monitoring. * Serial EKG and troponins. So far no acute findings. * Continue home daily low dose aspirin. * Holding prior to admission beta-sayra, carvedilol 25 mg PO BID in the setting of recent cocaine use. #Acute pancreatitis: Presented with epigastric pain. Lipase elevated at 1246. Confirmed by CT Abdomen/Pelvis. BISAP score 0 corresponding to <1% mortality. Likely secondary to alcohol use. No evidence of gallstones on CT Abdomen/Pelvis. Prior episode of acute pancreatitis in November 2015. * Patient diet advance to clear liquids tolerating well. * LR @ 75 cc/hr. * Zofran PRN for nausea. * Pain management as below. #HFrEF: S/p AICD/PPM placement in 2013. Most recent ECHO in November 2015 with LVEF estimated at 35-40%. * Monitor strict I/Os. * Monitor closely for signs of volume overload given aggressive IV hydration. #Polysubstance abuse: Utox positive for cocaine and opiates. Heavy alcohol use. Per patient, his last drink was on the afternoon of current presentation and last cocaine use was two days prior. * Social work consult after medical stabilization. * [facility] protocol to monitor for signs of alcohol withdrawal. #HTN: BP elevated to 177/90 most likely secondary to pain and cocaine use. * Continue prior to admission hydralazine 25 mg PO TID, Isordil 20 mg PO TID and spironolactone 12.5 mg PO QD. #Depression: * Continue prior to admission Zoloft 150 mg PO QD. #Insomnia: * Continue prior to admission trazodone 150 mg PO QHS PRN. Diet: NPO Fluids: LR @ 75 cc/hr DVT PPx: HSQ and ALPs CODE: FULL Problem List: 1. HFrEF (heart failure with reduced ejection fraction) 2. Acute pancreatitis 3. Polysubstance abuse 4. Chest pain 5. Full code status 6. DVT prophylaxis Pain Ratin Pain Location: Epigastric area Pain Goal: Remain pain free Pain Plan: Tylenol 650 mg PO Q6H PRN for mild pain (scale 1-3) Tylenol 1 g IV Q12H PRN for moderate pain (scale 4-6) Dilaudid 0.5 mg IV Q6H PRN for severe pain (scale 7-10) Tomorrow's Labs & Rationales: CBC and BEP in setting of acute pancreatitis
[2016-05-10 08:53] VITALS: BP 150/104
--- NOTE | 2016-05-10 09:37 | ECHOCARDIOGRAM REPORT ---
AHSAN LOPEZ Age: 51 : 1965 Gender: M Exam Date: 05/09/2016 16:49 Exam Location: [address] Ht (in): 67 Wt (lb): 250 BSA: 2.37 BP: 160 / 72 Ordering Physician: IRMA MITCHELL MD Referring Physician: Chelsie Stratton MD Technologist: Maryuri Tan [facility] Room Number: [id number] Indications: CHEST PAIN Rhythm: Sinus Technical Quality: Poor, Very technically difficult study FINDINGS Left Ventricle Normal size left ventricle. Left ventricular wall thickness mildly increased. Borderline normal left ventricular ejection fraction estimated at 50-55%. Right Ventricle Right ventricle not well visualized. Right Atrium Right atrium not well visualized. Left Atrium Left atrial size at the upper limits of normal. Mitral Valve Mitral valve thickened. Trace to mild mitral regurgitation. Aortic Valve Trileaflet aortic valve. Diffuse thickening (sclerosis) of the aortic valve cusps without reduced excursion. No aortic stenosis. No aortic regurgitation. Tricuspid Valve Tricuspid valve not well visualized, grossly normal. Pulmonic Valve Pulmonic valve not well visualized, grossly normal. Trace to mild pulmonic regurgitation. Pericardium No pericardial effusion. Great Vessels Aortic root and proximal ascending aorta not well visualized, grossly normal. CONCLUSIONS 1. THis was a technically difficult and very limited examination with markedly suboptimal apical images. 2. Aortic sclerosis is present with no valvular stenosis or insufficiency, 3. Mitral leaflet thickening is present. 4. There is no significant pericardial fluid detected. 5. The left ventricular chamber size appears normal. Mild concentric hypertrophy is present. Accurate wall motion assessment was not possible. The ejection fraction appears to be about 50-55%. 6. The right heart structures were not optimally visualized. The RV systolic pressure could not be accurately assessed. Mld pulmonic insufficiency is present. 7. If clinically indicated, a MUGA scan might be useful to better assess LV systolic function. Chelsie Stratton M.D. (Electronically Signed) Final Date: 10 May 2016 09:37 MEASUREMENTS (Male / Female) Normal Values 2D ECHO LV Diastolic Diameter PLAX 4.6 cm 4.2 - 5.9 / 3.9 - 5.3 cm LV Systolic Diameter PLAX 3.0 cm 2.1 - 4.0 cm LV Fractional Shortening PLAX 34.8 % 25 - 46 % LV Ejection Fraction 2D Teich 64.0 % IVS Diastolic Thickness 1.4 cm LVPW Diastolic Thickness 1.4 cm LV Relative Wall Thickness 0.6 RV Internal Dim ED PLAX 2.9 cm 1.9 - 3.8 cm LVOT Diameter 2.1 cm Aortic Root Diameter 2.9 cm LA Systolic Diameter LX 4.5 cm 3.0 - 4.0 / 2.7 - 3.8 cm LA Volume 25.0 cm 18 - 58 / 22 - 52 cm Ascending Aorta Diameter 3.3 cm DOPPLER AV Peak Velocity 113.0 cm/s AV Peak Gradient 5.1 mmHg AV Mean Velocity 74.6 cm/s AV Mean Gradient 3.0 mmHg AV Velocity Time Integral 17.2 cm LVOT Peak Velocity 99.3 cm/s LVOT Peak Gradient 3.9 mmHg LVOT Mean Velocity 70.1 cm/s LVOT Mean Gradient 2.0 mmHg LVOT Velocity Time Integral 18.6 cm LVOT Stroke Volume 64.4 cm AV Area Cont Eq vti 3.7 cm AV Area Cont Eq pk 3.0 cm MV Peak Velocity 84.3 cm/s MV Peak Gradient 2.8 mmHg MV Mean Velocity 51.5 cm/s MV Mean Gradient 1.0 mmHg Mitral E Point Velocity 57.3 cm/s Mitral A Point Velocity 80.5 cm/s Mitral E to A Ratio 0.7 MV PHT Velocity 61.7 cm/s MV Deceleration [place] 410.0 cm/s MV Pressure Half Time 45.1 ms MV Area PHT 4.9 cm MV Deceleration Time 232.0 ms TR Peak Velocity 79.1 cm/s TR Peak Gradient 2.5 mmHg Right Atrial Pressure 5.0 mmHg Pulmonary Artery Systolic Pressu 7.5 mmHg Right Ventricular Systolic Press 7.5 mmHg PV Peak Velocity 86.8 cm/s PV Peak Gradient 3.0 mmHg PV Mean Velocity 56.9 cm/s PV Mean Gradient 1.0 mmHg PV Velocity Time Integral 14.2 cm LV E' Lateral Velocity 7.3 cm/s Mitral E to LV E' Lateral Ratio 7.8 LV E' Septal Velocity 7.3 cm/s Mitral E to LV E' Septal Ratio 7.8
--- NOTE | 2016-05-10 16:26 | PN- Cardiology ---
Subjective Subjective: Feeling better. No chest pain. Occasional mild abdominal discomfort. No palpitations. No lightheadedness or dizziness. He is on a clear liquid diet. Objective Vital Signs and I&Os Vital Signs Date Time Temp Pulse Resp B/P Pulse O2 O2 Flow FiO2 Ox Delivery Rate 05/10 1604 87 157/97 05/10 1603 87 157/97 05/10 1355 91 160/70 05/10 1105 100 150/104 05/10 1104 100 150/104 05/10 0853 97.1 55 16 150/104 96 Room Air 05/10 0000 Room Air 05/10 0000 98.4 91 18 162/80 92 Room Air 05/09 210 84 162/80 05/09 2108 84 162/80 05/09 1631 97.5 101 20 148/100 94 Room Air 05/09 1621 97.8 90 20 160/72 Intake & Output 05/10 1600 05/10 0800 05/10 0000 05/09 1600 05/09 0800 05/09 0000 Intake Total 240 150 650 300 800 900 Output Total 200 400 650 Balance 240 150 650 100 400 250 Intake, IV 0 0 300 800 800 Intake, Oral 240 150 650 0 100 Number 0 0 0 0 Bowel Movements Output, Urine 200 400 650 Patient 250 lb Weight Physical Exam: Gen: The patient is in no acute distress HEENT: Normal nose, ears, and oropharynx. Pupils equal bilaterally. Conjunctiva normal. Neck: Supple with no JVD, no masses, and no thyromegaly Lungs: Clear to auscultation with normal respiratory effort Heart: RRR, S1, S2, 2/6 systolic murmur. No peripheral edema, 2+ pulses in the lower extremities bilaterally Abdomen: Soft, nontender, no masses. No hepatomegaly. No splenomegaly Extremities: No clubbing or cyanosis. Normal muscle strength in the upper and lower extremities Skin: Normal skin turgor with no skin ulcers or lesions noted. Current Medications: Current Medications Sig/Nadia Start time Last Medication Dose Route Stop Time Status Admin Acetaminophen 650 MG .STK-MED ONE 05/09 2027 DC PO 05/09 2028 Acetaminophen 650 MG Q6P PRN 05/08 0300 AC 05/08 PO 1604 Acetaminophen 1,000 MG Q12P PRN 05/08 0300 AC IV Aspirin 81 MG DAILY 05/08 1000 AC 05/10 PO 1105 Carvedilol 25 MG BID 05/10 1256 AC 05/10 PO 1355 Guaifenesin 10 ML Q6P PRN 05/08 1700 AC 05/10 PO 0100 Heparin Sodium 5,000 UNIT Q8 05/08 0600 AC 05/10 (Porcine) SC 1354 Hydralazine HCl 25 MG TID 05/08 1000 AC 05/10 PO 1603 Hydromorphone HCl 0.5 MG Q6P PRN 05/08 0300 AC 05/08 IV 0849 Isosorbide Dinitrate 20 MG TID 05/08 1000 AC 05/10 PO 1604 Lorazepam 0 Q1P PRN 05/08 1700 AC 05/10 IV 1618 Magnesium Oxide 400 MG BID 05/08 1000 AC 05/10 PO 1105 Omeprazole 20 MG DAILY AC 05/08 0700 AC 05/10 PO 0617 Sertraline HCl 150 MG DAILY 05/08 1000 AC 05/10 PO 1105 Spironolactone 12.5 MG DAILY 05/08 1000 AC 05/10 PO 1105 Trazodone HCl 150 MG .STK-MED ONE 05/09 2033 DC PO 05/09 2034 Trazodone HCl 150 MG DAILY NEEDED PRN 05/08 0400 AC 05/09 PO 2130 Results Last 48 Hrs of Labs/Mics: Laboratory Tests 05/10/16 0645: Anion Gap 10, Estimated GFR > 60, BUN/Creatinine Ratio 9.0, CBC w Diff NO MAN DIFF REQ, RBC 5.19, MCV 93.8, MCH 31.4 H, RDW 15.9 H, MPV 8.0, Gran % 78.5 H, Lymphocytes % 10.2 L, Monocytes % 8.0, Eosinophils % 2.7, Basophils % 0.6, Absolute Granulocytes 3.7, Absolute Lymphocytes 0.5 L, Absolute Monocytes 0.4, Absolute Eosinophils 0.1, Absolute Basophils 0, PUBS MCHC 33.5 05/09/16 0650: Anion Gap 9, Estimated GFR > 60, BUN/Creatinine Ratio 9.0, CBC w Diff NO MAN DIFF REQ, RBC 5.17, MCV 94.1 H, MCH 31.5 H, RDW 16.3 H, MPV 8.2, Gran % 80.0 H, Lymphocytes % 9.4 L, Monocytes % 7.7, Eosinophils % 2.5, Basophils % 0.4, Absolute Granulocytes 3.4, Absolute Lymphocytes 0.4 L, Absolute Monocytes 0.3, Absolute Eosinophils 0.1, Absolute Basophils 0, PUBS MCHC 33.5 Recent Imaging Studies: Echocardiogram 05/10/16: 1. THis was a technically difficult and very limited examination with markedly suboptimal apical images. 2. Aortic sclerosis is present with no valvular stenosis or insufficiency, 3. Mitral leaflet thickening is present. 4. There is no significant pericardial fluid detected. 5. The left ventricular chamber size appears normal. Mild concentric hypertrophy is present. Accurate wall motion assessment was not possible. The ejection fraction appears to be about 50-55%. 6. The right heart structures were not optimally visualized. The RV systolic pressure could not be accurately assessed. Mld pulmonic insufficiency is present. 7. If clinically indicated, a MUGA scan might be useful to better assess LV systolic function. Assessment/Plan Assessment/Plan Assessment: 1. Nonischemic cardiomyopathy 2. ICD 3. Acute pancreatitis Plan: * Clear liquid diet. * Clear liquid diet * [facility] protocol for alcohol withdrawal Continue telemetry? Yes
[2016-05-10 16:35] VITALS: BP 157/97
[2016-05-11 00:14] VITALS: BP 150/96
--- NOTE | 2016-05-11 07:54 | PN- Housestaff ---
Subjective Follow-up For: Chest pain Pancreatitis Tele-Events Since Last Visit: Sinus rhythm, Subjective: Patient seen and examined this point. He was lying comfortably in bed in no acute distress. His site was transitioned to full liquid last night which he has been tolerating well, no planes of epigastric pain, nausea, vomiting, denies any chest pain, palpitation, dizziness. Remains afebrile, her pressure still high, the solid ranging between 150-168. Review of Systems Constitutional: Denies: chills, fever. Cardiovascular: Denies: chest pain, palpitations. Respiratory: Denies: cough, short of breath, sputum production. Gastrointestinal: Denies: abdominal pain, constipation, diarrhea, nausea, vomiting. Genitourinary: Denies: dysuria, frequency. Objective Last 24 Hrs of Vital Signs/I&O Vital Signs Date Time Temp Pulse Resp B/P Pulse O2 O2 Flow FiO2 Ox Delivery Rate 05/11 1314 144/90 05/11 1036 150/98 05/11 1036 150/98 05/11 1036 150/98 05/11 0802 98.1 104 20 168/120 95 Room Air 05/11 0014 150/96 05/10 2259 97.4 80 20 94 Room Air 05/10 2106 83 150/100 05/10 2105 83 150/100 05/10 2105 83 150/100 05/10 1635 97.7 81 18 157/97 95 Room Air 05/10 1604 87 157/97 05/10 1603 87 157/97 Intake & Output 05/11 1600 05/11 0800 05/11 0000 Intake Total 250 500 Output Total Balance 250 500 Intake, IV 10 20 Intake, Oral 240 480 Physical Exam General Appearance: Alert, Oriented X3, Cooperative, No Acute Distress Cardiovascular: Regular Rate, Normal S1, Normal S2, No Murmurs Lungs: Clear to Auscultation, Normal Air Movement Abdomen: Normal Bowel Sounds, Soft, No Tenderness Extremities: No Clubbing, No Cyanosis, No Edema Assessment/Plan Assessment: 51 y/o M with PMHx of alcohol and cocaine abuse, HFrEF 2/2 nonischemic cardiomyopathy s/p AICD/PPM placement in 2013 and acute pancreatitis who presents with chest pain and abdominal pain, found to have elevated lipase and evidence of acute pancreatitis on CT Abdomen/Pelvis. #Chest pain: Resolved. Most likely coronary vasospasm precipitated by cocaine use. Concerning for ACS given significant cardiac history and cocaine abuse. EKG with no ST-T wave abnormalities. First set of troponins negative. * Continuous cardiac monitoring. * Serial EKG and troponins. So far no acute findings. #Acute pancreatitis: Presented with epigastric pain. Lipase elevated at 1246. Confirmed by CT Abdomen/Pelvis. BISAP score 0 corresponding to <1% mortality. Likely secondary to alcohol use. No evidence of gallstones on CT Abdomen/Pelvis. Prior episode of acute pancreatitis in November 2015. * Patient diet advance to regular today, no nausea, epigastric pain reported. #HFrEF: S/p AICD/PPM placement in 2013. Most recent ECHO in November 2015 with LVEF estimated at 35-40%. * Monitor strict I/Os. * Monitor closely for signs of volume overload given aggressive IV hydration. #Polysubstance abuse: Utox positive for cocaine and opiates. Heavy alcohol use. Per patient, his last drink was on the afternoon of current presentation and last cocaine use was two days prior. * Social work consult after medical stabilization. * [facility] protocol to monitor for signs of alcohol withdrawal. #HTN: BP elevated to 177/90 most likely secondary to pain and cocaine use. * Continue home daily dose of aspirin, carvedilol, hydralazine, lisinopril. #Depression: * Continue prior to admission Zoloft 150 mg PO QD. #Insomnia: * Continue prior to admission trazodone 150 mg PO QHS PRN. Diet: NPO Fluids: LR @ 75 cc/hr DVT PPx: HSQ and ALPs CODE: FULL Problem List: 1. HFrEF (heart failure with reduced ejection fraction) 2. Acute pancreatitis 3. Polysubstance abuse 4. Full code status 5. DVT prophylaxis Pain Ratin Pain Location: None Pain Goal: Remain pain free Pain Plan: See assessment and plan Tomorrow's Labs & Rationales: None
[2016-05-11 08:02] VITALS: BP 168/120
[2016-05-11 08:30] LABS: ABSOLUTE BASOPHIL COUNT 0 /CUMM (0.0-0.2); ABSOLUTE EOSINOPHIL COUNT 0.2 /CUMM (0.0-0.7); ABSOLUTE GRANULOCYTE CT 3.4 /CUMM (1.4-6.5); ABSOLUTE LYMPH COUNT 0.7 /CUMM (1.2-3.4); ABSOLUTE MONOCYTE COUNT 0.4 /CUMM (0.10-0.60); BASOPHIL % 0.8 % (0.0-2.0); EOSINOPHIL % 3.4 % (0-5); GRANULOCYTE % 71.2 % (42.2-75.2); HEMATOCRIT 48.5 % (42-52); MEAN CORPUSCULAR HGB 31.7 PG (27.0-31.0); MEAN CORPUSCULAR HGB CONC 33.6 G/DL (33.0-37.0); MEAN CORPUSCULAR VOLUME 94.3 FL (80.0-94.0); MEAN PLATELET VOLUME 7.8 FL (7.4-10.4); PLATELET COUNT 114 /CUMM (130-400); RBC DISTRIBUTION WIDTH 16.2 % (11.5-14.5); RED BLOOD CELL CT 5.14 /CUMM (4.70-6.10); WHITE BLOOD CELL COUNT 4.8 /CUMM (4.8-10.8)
[2016-05-11 13:14] VITALS: BP 144/90
--- NOTE | 2016-05-11 13:27 | PN- Cardiology ---
Subjective Subjective: Doing okay. Diet advancing. No new cardiac symptoms. Objective Vital Signs and I&Os Vital Signs Date Time Temp Pulse Resp B/P Pulse O2 O2 Flow FiO2 Ox Delivery Rate 05/11 1314 144/90 05/11 1036 150/98 05/11 1036 150/98 05/11 1036 150/98 05/11 0802 98.1 104 20 168/120 95 Room Air 05/11 0014 150/96 05/10 2259 97.4 80 20 94 Room Air 05/10 2106 83 150/100 05/10 2105 83 150/100 05/10 2105 83 150/100 05/10 1635 97.7 81 18 157/97 95 Room Air 05/10 1604 87 157/97 05/10 1603 87 157/97 05/10 1355 91 160/70 Intake & Output 05/11 1600 05/11 0800 05/11 0000 05/10 1600 05/10 0800 05/10 0000 Intake Total 250 500 240 150 650 Output Total Balance 250 500 240 150 650 Intake, IV 10 20 0 0 Intake, Oral 240 480 240 150 650 Number 0 0 Bowel Movements Patient 250 lb Weight Current Medications: Current Medications Sig/Nadia Start time Last Medication Dose Route Stop Time Status Admin Acetaminophen 650 MG Q6P PRN 05/08 0300 AC 05/08 PO 1604 Acetaminophen 1,000 MG Q12P PRN 05/08 0300 AC IV Aspirin 81 MG DAILY 05/08 1000 05/11 PO 1036 Carvedilol 25 MG BID 05/10 1256 AC 05/11 PO 1036 Guaifenesin 10 ML Q6P PRN 05/08 1700 05/10 PO 0100 Heparin Sodium 5,000 UNIT Q8 05/08 0600 05/11 (Porcine) SC 0649 Hydralazine HCl 25 MG TID 05/08 1000 05/11 PO 1036 Hydromorphone HCl 0.5 MG Q6P PRN 05/08 0300 AC 05/08 IV 0849 Isosorbide Dinitrate 20 MG TID 05/08 1000 05/11 PO 1036 Lisinopril 10 MG DAILY 05/11 1039 AC 05/11 PO 1314 Lorazepam 1 MG Q8 05/11 1400 AC 05/11 PO 1045 Lorazepam 0 Q1P PRN 05/08 1700 AC 05/10 IV 2106 Magnesium Oxide 400 MG BID 05/08 1000 AC 05/11 PO 1036 Omeprazole 20 MG DAILY AC 05/08 0700 AC 05/11 PO 0648 Sertraline HCl 150 MG DAILY 05/08 1000 AC 05/11 PO 1035 Spironolactone 12.5 MG DAILY 05/08 1000 AC 05/11 PO 1036 Trazodone HCl 150 MG DAILY NEEDED PRN 05/08 0400 AC 05/11 PO 0300 Results Last 48 Hrs of Labs/Mics: Laboratory Tests 05/11/16 0657: Anion Gap 13, Estimated GFR > 60, BUN/Creatinine Ratio 8.9, CBC w Diff NO MAN DIFF REQ, RBC 5.14, MCV 94.3 H, MCH 31.7 H, RDW 16.2 H, MPV 7.8, Gran % 71.2, Lymphocytes % 15.3 L, Monocytes % 9.3, Eosinophils % 3.4, Basophils % 0.8, Absolute Granulocytes 3.4, Absolute Lymphocytes 0.7 L, Absolute Monocytes 0.4, Absolute Eosinophils 0.2, Absolute Basophils 0, PUBS MCHC 33.6 05/10/16 0645: Anion Gap 10, Estimated GFR > 60, BUN/Creatinine Ratio 9.0, CBC w Diff NO MAN DIFF REQ, RBC 5.19, MCV 93.8, MCH 31.4 H, RDW 15.9 H, MPV 8.0, Gran % 78.5 H, Lymphocytes % 10.2 L, Monocytes % 8.0, Eosinophils % 2.7, Basophils % 0.6, Absolute Granulocytes 3.7, Absolute Lymphocytes 0.5 L, Absolute Monocytes 0.4, Absolute Eosinophils 0.1, Absolute Basophils 0, PUBS MCHC 33.5 Assessment/Plan Assessment/Plan Assessment/Plan Assessment: 1. Nonischemic cardiomyopathy 2. ICD 3. Acute pancreatitis Plan: * Clear liquid diet. * Clear liquid diet * [facility] protocol for alcohol withdrawal Continue telemetry? No
--- NOTE | 2016-05-11 15:03 | Patient Discharge Instructions ---
Discharge Instructions General Discharge Information You were seen/treated for: Chest pain Pancreatitis Special Instructions: Schedule a follow-up appointment with her primary care physician in one week, call the office tomorrow to schedule the appointment. Please take a low-fat diet, watch for any repeat episodes of abdominal pain, nausea, vomiting, chest pain. In case of emergency go to the nearest hospital. Diet Continue normal diet: Yes Recommended Diet: Low Fat Activity Activity Self Limited: Yes Acute Coronary Syndrome Inclusion Criteria At DC or during hospital stay patient has or had the following: ACS DIAGNOSIS No Discharge Core Measures Meds if any: Prescribed or Continued at Discharge Meds if any: NOT Prescribed or Continued at Discharge Congestive Heart Failure Inclusion Criteria At DC or during hospital stay patient has or had the following: CHF DIAGNOSIS No Discharge Core Measures Meds if any: Prescribed or Continued at Discharge Meds if any: NOT Prescribed or Continued at Discharge Cerebrovascular accident Inclusion Criteria At DC or during hospital stay patient has or had the following: CVA/TIA Diagnosis No Discharge Core Measures Meds if any: Prescribed or Continued at Discharge Meds if any: NOT Prescribed or Continued at Discharge Venous thromboembolism Inclusion Criteria VTE Diagnosis No VTE Type NONE VTE Confirmed by (Test) NONE Discharge Core Measures - Per Current guidelines, there needs to be overlap - treatment for the first 5 days of Warfarin therapy. - If discharged on Warfarin prior to 5 days of - overlap therapy, the patient will need to be - assessed for post discharge needs including - *Post discharge parental anticoagulation - *Warfarin and/or parental anticoagulation education - *Follow up date to check INR post discharge At least 5 days overlap therapy as Inpatient No Meds if any: Prescribed or Continued at Discharge Note: Overlap Therapy is Warfarin and Anticoagulant Meds if any: NOT Prescribed or Continued at Discharge
--- NOTE | 2016-06-12 17:29 | Discharge Summary ---
Visit Information Visit Dates Admission Date: 05/08/16 Discharge Date: 05/11/16 Hospital Course Course Attending Physician: Celina HA MD Primary Care Physician: Celina HA MD Hospital Course: THE PATIENT WAS ADMITTED TO THE HOSPITAL FOR EVALUATION OF HIS EPIGASTRIC AND LOWER CHEST DISCOMFORT. HE WAS DIAGNOSED WITH PANCREATITIS. HIS CARDIOLOGY EVALUATION WAS UNREVEALING. THE PATIENT WAS TREATED COSERVATIVELY WITH IV FLUIDS AND NPO STATUS. HE PROGRESSIVELY IMPROVED AND WAS DISCHARGED IN STABLE CONDITION. Complications: NONE Allergies: Coded Allergies: NO KNOWN ALLERGIES (06/03/16) Disposition Summary Disposition Principal Diagnosis: PANCREATITIS Additional Diagnosis: NON ISCHEMIC CARDIOMYOPATHY Discharge Disposition: home or self care Discharge Instructions General Discharge Information Code Status: Full Code Patient's Diet: REGULAR Patient's Activity: PER THE PATIENT AVOID ALCOHOL Follow-Up Instructions/Appts: DR HA IN 1-2 WEEKS Medications at Discharge Discharge Medications: Continue taking these medications: HYDRALAZINE HCL (Hydralazine HCl) 25 MG TABLET 1 Tablet ORAL THREE TIMES DAILY Comments: Last Taken Date: 09/19/13 Last Taken Time: 1600 Magnesium Oxide (Magnesium Oxide) 400 MG TABLET 1 Tablet ORAL TWICE DAILY Qty = 60 Comments: Last Taken Date: 09/19/13 Last Taken Time: 1000 Spironolactone (Aldactone 25 MG Tablet) 25 MG TABLET 0.5 Tablet ORAL DAILY Comments: Last Taken Date: 09/19/13 Last Taken Time: 1000 Isosorbide Dinitrate (Isordil (Sorbitrate 20MG)) 20 MG TABLET 1 Tablet THREE TIMES DAILY Comments: Last Taken Date: 09/19/13 Last Taken Time: 1600 Omeprazole (Omeprazole) 20 MG TABLET.DR 1 Tablet ORAL TWICE DAILY Comments: GIVEN 05/11/16 @ 0648 Sertraline HCl (Sertraline HCl) 100 MG TABLET 1.5 Tablet ORAL DAILY Qty = 135 Comments: GIVEN 05/11/16 @ 1035 Clindamycin Phosphate (Clindamycin Phosphate) 60 ML SOLUTION 1 Application On the skin DAILY Qty = 60 Instructions: apply to affected area(s) Comments: NOT TAKEN AT HOSPITAL Potassium Chloride (Potassium Chloride) 10 MEQ TABLET.ER 2 Tablet ORAL TWICE DAILY Qty = 360 Comments: NOT TAKEN AT HOSPITAL Docusate Sodium (Colace) 100 MG CAPSULE 1 Capsule ORAL as needed for STOOL SOFTENER Qty = 80 Comments: DID NOT TAKE AT HOSPITAL Carvedilol (Carvedilol) 25 MG TABLET 1 Tablet ORAL TWICE DAILY Qty = 180 Comments: NOT GIVEN IN HOSPITAL Methylcellulose (Fiber) (Unknown Strength) TABLET Unknown Dose ORAL DAILY Comments: NOT TAKEN AT HOSPITAL Cholecalciferol (Vitamin D3) (Vitamin D) (Unknown Strength) TABLET Unknown Dose ORAL DAILY Comments: NOT GIVEN IN HOSPITAL Aspirin (Aspirin*) 81 MG TAB.CHEW 81 Milligram ORAL DAILY Qty = 30 Comments: Last Taken: 06/06/16 Time: 0815 Lisinopril (Lisinopril) 10 MG TABLET 1 Tablet ORAL DAILY Qty = 30 Comments: Last Taken: 12/13/15 Time: 10:00AM Copies To: Celina HA MD Attending MD Review Statement Documenting Attending: Celina HA MD
== END 2016-05-11 15:40 | DRG 439 ==
LOC: ENRESERVDT → ENRESERVTM → ERH 21:46 → 1NO 05-08 02:30 → ERHI 05-08 02:30 → 1NO 05-08 03:24
PROVIDERS: Emergency Medicine; Internal Medicine; Student in an Organized Health Care Education/Training Program; ADMIT Specialist
DX: K85.20 Alcohol induced acute pancreatitis without necrosis or infection (principal); I50.22 Chronic systolic (congestive) heart failure; I11.0 Hypertensive heart disease with heart failure; I42.9 Cardiomyopathy, unspecified; G47.33 Obstructive sleep apnea (adult) (pediatric); F19.10 Other psychoactive substance abuse, uncomplicated; F32.9 Major depressive disorder, single episode, unspecified; R07.9 Chest pain, unspecified
CPT/HCPCS: 1NSP; 74177; 80307; 82436; 93005; 93010; 93306; 96374; 96375; 96376; G0480; J1644; J2405; J3490; J7120

== ENCOUNTER 2016-06-02 18:24 | Emergency (ER) | payer OTHER, MEDICARE ==
[~2016-06-02] VITALS: Ht 170.2 cm; Wt 113.4 kg
[2016-06-02 18:37] VITALS: BP 115/69
== END 2016-06-02 19:25 | disposition admitted as inpatient to this hospital (09) ==
LOC: ERH 18:24
DX: Z91.81 History of falling (principal)
CPT/HCPCS: 93005; 93010; 99281

== ENCOUNTER 2016-06-03 15:01 | Inpatient (IN) | payer OTHER, MEDICARE ==
[~2016-06-03] VITALS: Ht 170.2 cm; Wt 113.4 kg
[2016-06-03 16:29] LABS: ABSOLUTE BASOPHIL COUNT 0.1 /CUMM (0.0-0.2); ABSOLUTE EOSINOPHIL COUNT 0.2 /CUMM (0.0-0.7); ABSOLUTE GRANULOCYTE CT 7.1 /CUMM (1.4-6.5); ABSOLUTE LYMPH COUNT 0.6 /CUMM (1.2-3.4); ABSOLUTE MONOCYTE COUNT 1.1 /CUMM (0.10-0.60); BASOPHIL % 0.9 % (0.0-2.0); EOSINOPHIL % 2.1 % (0-5); GRANULOCYTE % 78.2 % (42.2-75.2); MEAN CORPUSCULAR HGB 31.4 PG (27.0-31.0); MEAN CORPUSCULAR HGB CONC 33.4 G/DL (33.0-37.0); MEAN CORPUSCULAR VOLUME 93.8 FL (80.0-94.0); MEAN PLATELET VOLUME 8.1 FL (7.4-10.4); PLATELET COUNT 135 /CUMM (130-400); RBC DISTRIBUTION WIDTH 15.4 % (11.5-14.5); RED BLOOD CELL CT 5.44 /CUMM (4.70-6.10); WHITE BLOOD CELL COUNT 9.1 /CUMM (4.8-10.8)
--- NOTE | 2016-06-03 16:49 | ED AMS/SEIZURE/WEAK/DIZZY ---
History of Present Illness General Chief Complaint: Psychiatric Related Complaint Stated Complaint: ANXIETY Source: patient, friend Exam Limitations: clinical condition, confusion Vital Signs & Intake/Output Vital Signs & Intake/Output Vital Signs Date Time Temp Pulse Resp B/P Pulse O2 O2 Flow FiO2 Ox Delivery Rate 06/04 0931 Room Air 06/04 0801 97.8 102 18 148/80 94 Room Air 06/04 0600 97.8 86 16 128/80 06/04 0400 98.2 100 18 140/90 06/04 0200 98.0 98 16 148/80 06/04 0030 98.0 80 16 148/88 06/03 2100 98.2 85 20 145/92 06/03 1947 98.0 92 20 152/88 06/03 1944 98.0 92 20 150/82 98 Nasal 3.0L Cannula 06/03 1900 98.2 80 20 135/90 06/03 1747 98.1 95 20 156/100 97 Room Air 06/03 1509 96.2 102 20 117/79 96 Room Air ED Intake and Output 06/04 0000 06/03 1200 Intake Total 200 Output Total 100 Balance 100 Intake, Oral 200 Output, Urine 100 Patient 250 lb Weight Allergies Coded Allergies: NO KNOWN ALLERGIES (06/03/16) Reconcile Medications Aspirin (Aspirin*) 81 MG TAB.CHEW 81 MG PO DAILY heart health Carvedilol 25 MG TABLET 1 TAB PO BID HEART (Reported) Cholecalciferol (Vitamin D3) (Vitamin D) (Unknown Strength) TABLET (Unknown Dose) PO DAILY SUPPLEMENT (Reported) Clindamycin Phosphate 60 ML SOLUTION 1 MAUREEN TOP DAILY AFFECTED AREA(S) ( Reported) apply to affected area(s) Docusate Sodium (Colace) 100 MG CAPSULE 1 CAP PO PRN STOOL SOFTENER (Reported ) HYDRALAZINE HCL (Hydralazine HCl) 25 MG TABLET 1 TAB PO TID HEART HEALTH ( Reported) Isosorbide Dinitrate (Isordil (Sorbitrate 20MG)) 20 MG TABLET 1 TAB TID HEART HEALTH (Reported) Lisinopril 10 MG TABLET 1 TAB PO DAILY BLOOD PRESSURE Magnesium Oxide 400 MG TABLET 1 TAB PO BID VITAMIN SUPPORT (Reported) Methylcellulose (Fiber) (Unknown Strength) TABLET (Unknown Dose) PO DAILY SUPPLEMENT (Reported) Omeprazole 20 MG TABLET.DR 1 TAB PO BID GI (Reported) Potassium Chloride 10 MEQ TABLET.ER 2 TAB PO BID SUPPLEMENT (Reported) Sertraline HCl 100 MG TABLET 1.5 TAB PO DAILY MENTAL HEALTH (Reported) Spironolactone (Aldactone 25 MG Tablet) 25 MG TABLET 0.5 TAB PO DAILY HEART HEALTH (Reported) Triage Note: TRIAGE: PT TO ER C/C STATES HE SLEPT FOR 12 HRS YESTERDAY. STATES "HE WENT OUT" DURING BREAKFAST FOR ABOUT A MINUTE AND THEN WENT TO BED FOR 12 HOURS. STATES FELL 2 DAYS AGO. HAS PAIN TO BACK, LUNGS AND NEAR HIS HEART FROM THE FALL. STATES "IT DOESN'T FEEL LIKE I GET ANY OXYGEN TO MY BRAIN". REPORTS A COUPLE OF DIFFERENT EPSIODES WHEN HE WENT OUT IN THE RECENT PAST. ADMITS TO COCAINE USE 4 DAYS AGO. DENIES OTHER SUBSTANCE USE/ABUSE. Triage Nurses Notes Reviewed? yes HPI: 51 YO M W/ MULTIPLE MEDICAL PROBLEMS INCLUDING HTN, CHF, ALCOHOLISM, COCAINE USE , VTACH W/ AICD IN PLACE, "KIDNEY PROBLEMS" PRESENTING TO ED FOR POSSIBLE ALCOHOL WITHDRAWAL SEIZURE. PT WAS WITH FRIEND WHEN HE HAD A WITNESSED SYNCOPAL EPISODE WHERE HIS HEAD LANDED ONTO THE TABLE. FRIEND BELIEVES HE WAS SHAKING AFTER, BUT UNSURE. PT STATES HE'S BEEN HAVING THESE PASSING OUT EPISODES. PT DOES ENDORSE HAVING SEIZURES IN THE SETTING OF NOT DRINKING. HE DRINKS APPROX 1 PINT DAILY AND SMOKES 1PPD. PT ALSO ENDORSES COCAINE USE A FEW DAYS AGO. HE ENDORSES CP ONGOING FOR THE PAST SEVERAL DAYS, INCLUDING TODAY. + COUGH, NONPRODUCTIVE. PT DENIES CP BEING RELATED TO EXERTION. NO FEVERS. + CHILLS DAILY AND NIGHT SWEATS. PT DENIES ABD PAIN, N/V. + DIARRHEA. (SHAY PIKE,ALLISON) Past History Travel History Traveled to [place] past 21 day No Medical History Any Pertinent Medical History? 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 No (ALLISON DAY MD) Review of Systems Review of Systems Constitutional: Reports: chills, weakness. Denies: fever. EENTM: Denies: see HPI. Respiratory: Reports: cough, wheezing. Cardiovascular: Reports: chest pain, syncope. GI: Reports: diarrhea. Denies: abdominal pain, melena, nausea, vomiting. Genitourinary: Reports: no symptoms. Musculoskeletal: Reports: back pain. Skin: Reports: no symptoms. Neurological/Psychological: Reports: confusion, headache. Hematologic/Endocrine: Reports: no symptoms. All Other Systems: Reviewed and Negative (ALLISON DAY MD) Physical Exam Physical Exam General Appearance: well developed/nourished, alert, awake, DIAPHORETIC W/ SWEAT BEADS TO HEAD Head: atraumatic, normal appearance Eyes: Bilateral: normal appearance, PERRL, EOMI. Ears, Nose, Throat: normal pharynx, normal ENT inspection, hearing grossly normal, TONGUE FASICULATIONS Neck: normal inspection, supple, full range of motion Respiratory: chest non-tender, wheezing, CRACKLES AT BASES BILATERAL. MILD EXPIRATORY WHEEZE DIFFUSELY Cardiovascular: regular rate/rhythm, normal peripheral pulses, L CHEST AICD IN PLACE Gastrointestinal: normal bowel sounds, soft, non-tender Rectal: deferred Back: normal inspection, normal range of motion Extremities: normal range of motion Neurologic/Psych: no motor/sensory deficits, awake, alert Skin: intact, normal color, diaphoresis Lymphatic: no anterior cervical holly Core Measures ACS in differential dx? No CVA/TIA Diagnosis: No Severe Sepsis Present: No Septic Shock Present: No (ALLISON DAY MD) Progress Differential Diagnosis: arrythmia, alcohol intoxication, dehydration, drug intoxication, migraine MARI, pneumonia, seizure disorder Plan of Care: Orders Procedure Date/time Status Heart Healthy Diet 06/04 B Active RT: Evaluation 06/04 930 Active Lab Add-on Test 06/04 0930 Active XRY-PORTABLE CHEST XRAY 06/04 0800 Active EKG 06/04 0800 Active CBC WITHOUT DIFFERENTIAL 06/04 0600 Complete BASIC ELECTROLYTES PLUS BUN&CR 06/04 0600 Complete EKG 06/04 0600 Active URINE DRUGS OF ABUSE 06/04 0307 Active BASIC ELECTROLYTES PLUS BUN&CR 06/04 0000 Complete THERAPIST ORDERS 06/04 UNK Complete Vital Signs 06/03 2233 Active Teach/Educate 06/03 223 Active Nutritional Intake, Monitor 06/03 223 Active Isolation 06/03 223 Active Intake & Output 06/03 2232 Active Patient Care Conference 06/03 2232 Active Activity/Ambulation 06/03 2233 Active LACTIC ACID 06/03 222 Complete Lab Add-on Test 06/03 222 Active Pathway - chart 06/03 214 Active Pathway - chart 06/03 2145 Active House Staff 06/03 2145 Active Patient Data 06/03 2145 Active Code Status 06/03 2145 Active [place] Coma Scale 06/03 1948 Active CIWA 06/03 1947 Active Patient Data 06/03 1905 Active Admit to inpatient 06/03 1857 Active Vital Signs 06/03 1857 Active Code Status 06/03 1857 Complete Add-on Test (ER Only) 06/03 1836 Active Add-on Test (ER Only) 06/03 1627 Active TROPONIN LEVEL 06/03 1615 Complete LIPASE 06/03 1615 Complete LACTIC ACID 06/03 1615 Complete PHOSPHORUS 06/03 1612 Complete MAGNESIUM 06/03 1612 Complete ETHANOL 06/03 1612 Complete COMPREHENSIVE METABOLIC PANEL 06/03 1612 Complete CBC WITHOUT DIFFERENTIAL 06/03 1612 Complete EKG 06/03 1514 Active TRC EVALUATION (GEN) 06/03 UNK Complete VTE Mechanical Prophylaxis 06/03 UNK Active Seizure Precautions 06/03 UNK Active ELECTROENCEPHALOGRAM 06/03 UNK Active Current Medications Sig/Nadia Start time Last Medication Dose Stop Time Status Admin Aspirin 81 MG DAILY 06/04 1000 AC (Aspirin) Carvedilol 25 MG BID 06/04 1000 AC (Coreg) Folic Acid 1 MG DAILY 06/04 1000 AC (Folic Acid) Omeprazole 20 MG BID 06/04 1000 AC (Prilosec) Sertraline HCl 150 MG DAILY 06/04 1000 AC (Zoloft) Thiamine HCl 100 MG DAILY 06/04 1000 AC (Vitamin B1) Lorazepam 0 Q1P PRN 06/03 2200 AC (Ativan) Acetaminophen 650 MG Q6P PRN 06/03 2145 AC (Tylenol) Oxycodone/ 1 TAB Q6P PRN 06/03 2145 AC Acetaminophen (Percocet) Laboratory Tests 06/04/16 0730: Anion Gap 10, Estimated GFR > 60, BUN/Creatinine Ratio 20.0, CBC w Diff NO MAN DIFF REQ, RBC 5.64, MCV 92.9, MCH 31.2 H, RDW 16.0 H, MPV 8.5, Gran % 76.9 H, Lymphocytes % 7.7 L, Monocytes % 11.8 H, Eosinophils % 3.3, Basophils % 0.3, Absolute Granulocytes 4.4, Absolute Lymphocytes 0.4 L, Absolute Monocytes 0.7 H, Absolute Eosinophils 0.2, Absolute Basophils 0, PUBS MCHC 33.6 06/04/16 0105: Lactic Acid 0.8 06/04/16 010: Anion Gap 12, Estimated GFR > 60, BUN/Creatinine Ratio 18.3 06/03/16 2229: Methadone Screen Cancelled, Barbiturate Screen Cancelled, Ur Phencyclidine Scrn Cancelled, Amphetamines Screen Cancelled, U Benzodiazepines Scrn Cancelled, Urine Cocaine Screen Cancelled, Urine Cannabis Screen Cancelled 06/03/16 1615: Anion Gap 16, Estimated GFR 54 L, BUN/Creatinine Ratio 17.1, Glucose 160 H, Lactic Acid 3.1 H, Calcium 9.3, Phosphorus 3.9, Magnesium 1.7, Total Bilirubin 1.3, AST 40, ALT 56, Alkaline Phosphatase 84, Troponin I < 0.01, Total Protein 7.5, Albumin 4.6, Globulin 2.9, Albumin/Globulin Ratio 1.6, Lipase 256, CBC w Diff NO MAN DIFF REQ, RBC 5.44, MCV 93.8, MCH 31.4 H, RDW 15.4 H, MPV 8.1, Gran % 78.2 H, Lymphocytes % 6.8 L, Monocytes % 12.0 H, Eosinophils % 2.1, Basophils % 0.9, Absolute Granulocytes 7.1 H, Absolute Lymphocytes 0.6 L, Absolute Monocytes 1.1 H, Absolute Eosinophils 0.2, Absolute Basophils 0.1, PUBS MCHC 33.4, Serum Alcohol 19.0 06/03/16 1612: Methadone Screen Cancelled, Barbiturate Screen Cancelled, Ur Phencyclidine Scrn Cancelled, Amphetamines Screen Cancelled, U Benzodiazepines Scrn Cancelled, Urine Cocaine Screen Cancelled, Urine Cannabis Screen Cancelled 51 YO M W/ MULTIPLE MEDICAL PROBLEMS W/ DAILY ETOH USE PRESENTING TO ED AFTER POSSIBLE SEIZURE. PT ENDORSES COUGH, ABDOMINAL PAIN. PT IS NOTICABLY DIAPHORETIC W/ TONGUE FASICULATIONS. LIKELY ETOH WITHDRAWAL DESPITE PATIENT STATING HE DRANK PRIOR TO ARRIVAL. WILL OBTAIN LABS AND RE-ASSESS. WILL ORDER PATIENT VALIUM 10MG IV AND GENTLE BOLUS OF 500ML. PATIENT HAD SIGNIFICANT IMPROVEMENT W/ VALIUM. CT NEGATIVE FOR ANY ACUTE TRAUMA. WILL CHANGE CXR FROM PA/LATERAL TO PORTABLE. UNKNOWN ETIOLOGY OF SYNCOPE TODAY OR FALLS YESTERDAY. POSSIBLE ARRYTHMIA, BUT EKG IS UNCHANGED. SEVERAL ELECTROLYTE ABNORMALITIES. LACTATE 3.1, ETOH WITHDRAWAL SEIZURE MORE LIKELY. PT CONTINUES TO BE STABLE HERE IN ED. DISCUSSED W/ HOSPITALIST FOR ADMISSION FOR ALCOHOL WITHDRAWAL SEIZURE. (ALLISON DAY MD) Initial ED EKG: SINUS TACHYCARDIA AT RATE 100. INFERIOR Q WAVES. NO SIGNIFICANT CHANGE FROM PREV EKG 06/02/16 (ALLISON DAY MD) Departure Departure Disposition: STILL A PATIENT Condition: Stable Clinical Impression Primary Impression: Alcohol withdrawal seizure Qualifiers: Complication of substance-induced condition: uncomplicated Qualified Code: F10.230 - Alcohol dependence with withdrawal, uncomplicated Referrals: Celina HA MD (PCP/Family) Departure Forms: Customer Survey General Discharge Information (ALLISON DAY MD) Resident Co-Sign Statement Statement: ED Attending supervision documentation- [X] I saw and evaluated the patient. I have also reviewed all the pertinent lab results and diagnostic results. I agree with the findings and the plan of care as documented in the Resident's documentation. [X] I have reviewed the ED Record and agree with the Resident's documentation. [] Additions or exceptions (if any) to the Resident's note and plan are summarized below: [] (PARIS RIVAS MD) ED Attending Observation Initial Observation Note: I have seen and personally examined JESSICAAHSAN Zeeshan SR on 06/03/16 at 1835. I agree with the current emergency department documentation. The disposition (admission or discharge) is uncertain at this time, he needs a period of observation for the following reason(s): The ED Nurse caring for this patient has been personally informed as to what the patient is being observed for. (ALLISON DAY MD)
--- NOTE | 2016-06-03 17:21 | CT SCAN REPORT ---
EXAMINATION: CT HEAD WITHOUT CONTRAST CT CERVICAL SPINE WITHOUT CONTRAST CLINICAL INFORMATION: Alcohol withdrawal. Seizure. COMPARISON: None available. TECHNIQUE: Contiguous axial imaging was performed from the skullbase to vertex without intravenous administration of contrast. Multidetector helical imaging was performed through the cervical spine. DLP: 1277.56 mGy-cm. FINDINGS: HEAD: There is no evidence of acute intracranial hemorrhage or territorial infarction. No abnormal mass effect or midline shift is seen. [place] to white matter differentiation is well preserved. No extra-axial fluid collections are identified. The ventricles are normal in size. Brain parenchymal attenuation is normal. The osseous structures and soft tissues are normal. The mastoid air cells are well aerated. There is mild to moderate mucosal thickening in the paranasal sinuses. CERVICAL SPINE: No acute fracture or dislocation is identified in the cervical spine. The patient is status post multilevel anterior cervical discectomy and fusion with hardware in place from the C4-C7 levels. The atlantoaxial articulation is normally maintained. The paraspinal soft tissues are normal. The lung apices are clear. IMPRESSION: 1. No acute intracranial pathology. Mild to moderate mucosal thickening in the paranasal sinuses. 2. No evidence of acute cervical spine traumatic injury. Status post anterior cervical discectomy and fusion from C4 through C7.
[2016-06-03 19:00] VITALS: BP 135/90
[2016-06-03 19:47] VITALS: BP 152/88
--- NOTE | 2016-06-03 19:58 | RADIOLOGY REPORT ---
EXAMINATION: XR PORTABLE CHEST CLINICAL INFORMATION: Seizures. Altered mental status. COMPARISON: Chest x-ray 05/07/2016 TECHNIQUE: Portable AP portable view of the chest was obtained. 7:08 PM FINDINGS: Pacemaker lead in right atrium and right ventricle. Cardiac and mediastinal contours normal. No pulmonary vascular congestion. Lungs are clear. No pleural effusion. Orthopedic plate and screw at lower cervical spine. IMPRESSION: No acute abnormality of the chest.
--- NOTE | 2016-06-03 20:05 | History & Physical ---
SANDRITA BOUCHER MD 06/03/16 2005: General Information and HPI MD Statement: I have seen and personally examined AHSAN COLES S SR and documented this H&P. The patient is a 51 year old M who presented with a patient stated chief complaint of subclinical seizures and alcoholic abuse. Source of Information: patient, family, old records Exam Limitations: clinical condition History of Present Illness: 51-year-old gentleman with past medical history of nonischemic cardiomyopathy, heart failure with reduced ejection fraction, extensive alcohol use, cocaine abuse, history of pancreatitis, depression, anxiety, and cervical stenosis who presented to the emergency department on 06/03/2016 after experiencing multiple seizures. The patient reports that over the last four days he has had issues of decreased mentation. Patient also reports that he may have had some falls owing to these seizures. On 06/02/2016 the patient was taken to [facility] by his brother after he had a seizure lasting approximately 9 seconds while sitting at the dining room table. The patient was not admitted to [place] and signed out AMA after reporting a prolonged duration in the waiting room. On 06/03/2016 the patient came to [facility] emergency department where he reports that he may have had a seizure in the emergency department. In addition to above, the patient also complains of abdominal pain. Abdominal pain is rated at 8 at 10 in severity. Described as a constant pain. Pain is more prevalent in the left upper chest and radiates to the back. Patient states that this pain may be attributed to a fall likely after he had a seizure. Some of the clinical history above was obtained from the brother of the patient, due to limited information from the patient. Allergies/Medications Allergies: Coded Allergies: NO KNOWN ALLERGIES (06/03/16) Home Med list Aspirin (Aspirin*) 81 MG TAB.CHEW 81 MG PO DAILY heart health Carvedilol 25 MG TABLET 1 TAB PO BID HEART (Reported) Cholecalciferol (Vitamin D3) (Vitamin D) (Unknown Strength) TABLET (Unknown Dose) PO DAILY SUPPLEMENT (Reported) Clindamycin Phosphate 60 ML SOLUTION 1 MAUREEN TOP DAILY AFFECTED AREA(S) ( Reported) apply to affected area(s) Cyanocobalamin (Vitamin B-12) (Vitamin B12) 2,500 MCG TABLET 1 TAB PO DAILY Supplement Docusate Sodium (Colace) 100 MG CAPSULE 1 CAP PO PRN STOOL SOFTENER (Reported ) Folic Acid 0.8 MG TABLET 1 TAB PO DAILY Supplement HYDRALAZINE HCL (Hydralazine HCl) 25 MG TABLET 1 TAB PO TID HEART HEALTH ( Reported) Isosorbide Dinitrate (Isordil (Sorbitrate 20MG)) 20 MG TABLET 1 TAB TID HEART HEALTH (Reported) Lisinopril 10 MG TABLET 1 TAB PO DAILY BLOOD PRESSURE Magnesium Oxide 400 MG TABLET 1 TAB PO BID VITAMIN SUPPORT (Reported) Methylcellulose (Fiber) (Unknown Strength) TABLET (Unknown Dose) PO DAILY SUPPLEMENT (Reported) Omeprazole 20 MG TABLET.DR 1 TAB PO BID GI (Reported) Potassium Chloride 10 MEQ TABLET.ER 2 TAB PO BID SUPPLEMENT (Reported) Sertraline HCl 100 MG TABLET 1.5 TAB PO DAILY MENTAL HEALTH (Reported) Spironolactone (Aldactone 25 MG Tablet) 25 MG TABLET 0.5 TAB PO DAILY HEART HEALTH (Reported) Compliance With Home Meds: UNKNOWN Past History Travel History Traveled to [place] past 21 day No Medical History Neurological: seizure EENT: NONE Cardiovascular: CHF, VTACH, PPM, CHF, HTN LCW PACEMAKER Respiratory: NONE Gastrointestinal: diverticulitis, pancreatitis Hepatic: NONE Renal: "KIDNEY PROBLEMS" ACUTE KIDNEY FAILURE Musculoskeletal: NECK/BACK FX Psychiatric: NONE Endocrine: NONE Blood Disorders: NONE Cancer(s): 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 Home Who Do You Live With? multiple family members Services at Home: None Primary Language: Vietnamese Smoking Status: Current Everyday Smoker ETOH Use: heavy use Illicit Drug Use: cocaine, Last use was 3 days ago. Functional Ability ADLs Independent: dressing, eating, toileting, bathing. Ambulation: independent IADLs Independent: shopping, housework, finances, food prep, telephone, transportation , medication admin. Review of Systems Review of Systems Constitutional: Reports: chills. Denies: diaphoresis, fever, malaise, weakness. Cardiovascular: Reports: syncope. Denies: chest pain, edema, orthopena, palpitations, peripheral edema. Respiratory: Reports: short of breath. GI: Denies: abdominal pain, bloating, constipation, diarrhea, distention, nausea, bloody stool, vomiting. Genitourinary: Reports: see HPI. Denies: discharge, dysuria. Musculoskeletal: Denies: back pain, gout, joint pain. Skin: Denies: change in skin color, change in hair/nails, erythema. Exam & Diagnostic Data Last 24 Hrs of Vital Signs/I&O Vital Signs Date Time Temp Pulse Resp B/P Pulse O2 O2 Flow FiO2 Ox Delivery Rate 06/03 1946 98.0 92 20 152/88 06/03 1943 98.0 92 20 150/82 98 Nasal 3.0L Cannula 06/03 174 98.1 95 20 156/100 97 Room Air 06/03 1509 96.2 102 20 117/79 96 Room Air Intake & Output 06/03 1600 06/03 0800 06/03 0000 Intake Total Output Total Balance Patient 111.13 kg Weight Physical Exam General Appearance Alert, Oriented X3, Cooperative, Mild Distress HEENT Mucous membranes dry Lymphatic Cervical nl Cardiovascular Regular Rate, Normal S1, Normal S2, No Murmurs Lungs Bilaterral Rhonchi Abdomen Normal Bowel Sounds, Soft, Distended, tenderness in Left upper quadrant. No guarding, No rebound. Neurological Normal Speech Extremities No Clubbing, No Cyanosis, No Edema Vascular Normal Pulses Last 24 Hrs of Labs/Huber: Laboratory Tests 06/03/16 1615: Anion Gap 16, Estimated GFR 54 L, BUN/Creatinine Ratio 17.1, Glucose 160 H, Lactic Acid 3.1 H, Calcium 9.3, Phosphorus 3.9, Magnesium 1.7, Total Bilirubin 1.3, AST 40, ALT 56, Alkaline Phosphatase 84, Total Protein 7.5, Albumin 4.6, Globulin 2.9, Albumin/Globulin Ratio 1.6, Lipase 256, CBC w Diff NO MAN DIFF REQ , RBC 5.44, MCV 93.8, MCH 31.4 H, RDW 15.4 H, MPV 8.1, Gran % 78.2 H, Lymphocytes % 6.8 L, Monocytes % 12.0 H, Eosinophils % 2.1, Basophils % 0.9, Absolute Granulocytes 7.1 H, Absolute Lymphocytes 0.6 L, Absolute Monocytes 1.1 H, Absolute Eosinophils 0.2, Absolute Basophils 0.1, PUBS MCHC 33.4, Serum Alcohol 19.0 Diagnostic Data EKG Results Rate 100 OR 172 Sinus Tachycardia QTC 475 Assessment/Plan Assessment: This is a 51-year-old gentleman with past medical history as well as multiple substance abuse who presented to the emergency department following decreased mentation and consciousness likely attributed due to subclinical seizures. #Altered mentation and seizures Patient does report that he previously has had one episode of urinary incontinence after experiencing a seizure. Obtain neurology consult in a.m. EEG in a.m. #Alcohol Abuse Consuming approximately 1 pint of vodka per day. His last alcoholic drink was on 06/03/2016. CIWA protocol. Ativan scheduled. 2 mg Q8 Urinary toxicology. #Lactic acidosis and ELENI On admission had an increased lactic acidosis of Lactic acid in a.m. to rule out any hypoperfusion. Gentle hydration till renal function improves. #History of AICD. Consider cardiology consultation in a.m. to rule out any arrhythmic cause of seizure. Initial EKG showed no ST changes. Repeat EKG in a.m. If patient complains of chest pain consider close monitoring on telemetry. Possible interrogation in AM. #Hyponatremia On admission patient's sodium level was 130 Likely due to decreased by mouth intake and dehydration. Begin patient on gentle hydration normal saline 50 mL. Repeat BEP in a.m. Avoid rapid correction of sodium over the 24 hour period. Limited to less than 8 mEq over 24 hours. #History of hypertension Hold lisinopril and Aldactone due to elevation in creatinine (1.4). Monitor BEP in a.m. Once creatinine results can resume medications. #History of Cocaine Abuse Drug counselling. Patient needs to be advised of possible interactions between Cocaine abuse and medications #Diet Heart healthy #DVT prophylaxis Lovenox #Code full code As Ranked By This Provider Problem List: 1. Alcohol withdrawal seizure Qualifiers Complication of substance-induced condition: uncomplicated Qualified Code: F10.230 - Alcohol dependence with withdrawal, uncomplicated 2. HFrEF (heart failure with reduced ejection fraction) 3. Polysubstance abuse 4. Abdominal pain 5. Cocaine abuse 6. Alcohol dependence Core Measures/Miscellaneous Acute Coronary Syndrome ACS Diagnosis: No Cerebrovascular Accident CVA/TIA Diagnosis: No Congestive Heart Failure CHF Diagnosis: No Venous Thromboembolism VTE Risk Factors: Age > 40 VTE Prophylaxis Ordered Inpt: Mechanical (ALPS/TEDS) No Mech VTE prophylaxis d/t: No contraindications No VTE Pharm Prophylaxis d/t: No contraindications VTE Diagnosis: No VTE Type: NONE VTE Confirmed by (Test): NONE Severe Sepsis Severe Sepsis Present: No Septic Shock Septic Shock Present: No Miscellaneous Documentation Attending Case Discussed With: SAVANNA STRAUSS MD. Primary Care Physician: Celina HA MD PAIGE Patient sees these Specialists NA Level of Patient Care: General Medicine TAMIAPHOENIXGrupo 06/03/16 0025: Attending MD Review Statement Attending Statement Attending MD Statement: examined this patient, discuss w/resident/PA/APPLICATION INFRASTRUCTURE ENGINEER, agreed w/resident/PA/APPLICATION INFRASTRUCTURE ENGINEER, reviewed EMR data (avail), reviewed images, amended to note Attending Assessment/Plan: Cc: Suspected seizures and alcoholism PMH: HF R EF S/P AICD, non-ischemic cardiomyopathy, alcoholism, cocaine use, history of pancreatitis, depression, anxiety, cervical stenosis Patient states that he has been having multiple seizures since last 3-4 days, he says that he had 4 episodes in total, does not provide details, probably losing consciousness, and states that he "shake like a fish". His friend witnessed an episode where he passed out and followed by probable shaking movement. Patient bit his tongue several times, has bladder incontinence once in this episode. Patient denies any feeling of getting shocked from AICD. He has been drinking a lot, eating less, feels hungry. He had a fall after which his "ribs" are hurting. He endorses cocaine use a few days ago, smokes 1 pack per day, drinks 1 patient hard liquor per day. Has some nonproductive cough which is chronic, patient's brother has noticed shortness of breath and orthopnea, patient denies it. Denies fever, chills. He has this chronic left-sided upper abdominal pain since previous episode of pancreatitis, which is gradually improving. Vitals: Afebrile, mildly tachycardic at presentation but later on stable, RR, O2 saturation in acceptable range. Mildly hypertensive on examination: A O 3, cooperative, tremors present, no focal neurological deficit, no JVD, no lymphadenopathy, mucosa dry, contusions on tongue (? Old bites) RS: Diffuse wheezing extensively bilaterally. No crackles. CVS: S1-S2, RRR. Abdomen: Obese, soft, NT, bowel sounds present. Some tenderness over the lateral aspect of lower chest and upper abdomen, no rebound. No dependent edema Labs: Hemoglobin 17.1, sodium 130(decreased from 134 on May 11), creatinine 1.4 (increased from 0.9 since May 11), lactic acid 3.1, glucose 160, lipase 256, troponin <0.01, alcohol level 19 U tox not done. EKG no acute changes Imaging: CT head, CT cervical spine, chest x-ray: No acute processes A and P #1 multiple seizure-like episode according to patient. Patient has tongue bite, bladder incontinence, and history of alcoholism. 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 This can happen with seizure as well. Continue seizure precaution, IV Ativan PRN Seizure, EEG in a.m. At the same time patient has extensive cardiac history S/P AICD, consult cardiology regarding opening and about telemetry monitoring, at this point these episodes appear less likely syncopal. Obtain EKG repeat in a.m. #2 extensive wheezing bilaterally: Probably cause of shortness of breath, patient denies any cough, sputum production. Continue scheduled and as necessary nebulization with ipratropium and albuterol, TRC. No need of antibiotics or steroids at this time, less likely COPD exacerbation #3 patient has history of cocaine use: Check EKG and troponins in 6 hours #4 hyponatremia : Appears to be volume contraction, patient dehydrated, elevated creatinine, hemoconcentration, no JVD, no crackles on respiratory examination. Continue gentle hydration at 50 mL per hour for 500 mL repeat labs in 6 hours, avoid overcorrection. #5 eleni : Probably secondary to volume contraction, continue gentle hydration as mentioned, monitor I's and O's, #6 alcohol withdrawal : Continue folic acid and thiamine by mouth continue scheduled and when necessary Ativan according to CIWA score, obtain Utox #7 patient has pain in left upper quadrant and on chest: Tender to touch, no fractures on x-ray. ? Contusion. Patient also has a recent episode of pancreatitis, consider CT abdomen and pelvis repeat once creatinine is better for any sequela of pancreatitis. #8 lactic acidosis: Probably secondary to alcoholism and seizure: Continue dental hydration, repeat lactate level. #9 continue his home medications of aspirin, Coreg, hydralazine hold lisinopril and Aldactone for elevated creatinine. KIRAN TRAN 06/04/16 0523: Resident Review Statement Resident Statement: examined this patient, discussed with chemist intern, agreed with chemist intern, discussed with family, reviewed EMR data (avail), discussed with nursing , reviewed images Other Findings: Mr. Coles is a 51-year-old gentleman with a PMH ETOH dependence, cocaine abuse, HFrEF (35-40%), AICD/PPM implantation, HTN, history of alcohol G seizures, pancreatitis and tobacco dependence at 1 PPD was brought in to [place] to concerns of withdrawal seizure. Information obtained from the patient's brother reports 2 episodes of unwitnessed falls with subsequent complaints of head and left chest discomfort. Subsequently while seated in his chair Mr. Coles had 2 spontaneous episodes of blacking out where his eyes rolled back into his head and became slightly unresponsive and slumped into the table. A day prior he went to to [facility] for detox, left due to long wait times, came by [facility] and decided to go home without any treatment. He has consistently drank approximately 1 pint of hard liquor daily. He also reports frequent cocaine use most recently 3-4 days ago. Patient's son reports noticing symptoms similar to PND and orthopnea with more pronounced dyspnea this afternoon. ROS: He complains of left upper abdominal pain that radiates to the back worse with deep inspiration, shortness of breath and chest tightness VS: BP 117/79, HR 102, RR 20, SPO2 96% on RA, T 96.2 Physical exam: He is arousable to verbal commands. RRR, normal S1/S2. Mild expiratory stridor/reason, diminished breath sounds in the basilar regions bilaterally. Normal bowel sounds, tenderness to palpation of the left upper quadrant/left flank. 1+ edema bilateral lower extremities. No evidence of focal neurologic deficits. Pertinent labs: WBC 9.1, H&H 17.1/51.0, platelets 135, sodium 130, potassium 4.0 , chloride 90, BUN/CR 20/1.4 Urine tox: Pending CXR: Unremarkable Head CT: Unremarkable Problem list: 1. Alcohol withdrawal with questionable withdrawal seizure 2. Cocaine use 3. History of CAD/CHF: EF 50-55% (05/09/2016) 4. Dyspnea 5. Acute kidney injury 6. Hyponatremia 7. Elevated lactic acid Plan: * Admit to general medicine floor * Ativan per [facility] protocol. Seizure prophylaxis. EEG for the a.m. and neurology follow-up * Pain management with Percocet * Follow-up urine tox * Cardiology consult for the a.m. She is currently on carvedilol 25 mg BID which is both selective also and nonselective beta-sayra. Discussed with cardiology on risks benefits continue the patient on this medication with his history of cocaine use * Gentle hydration and follow-up renal function in the a.m. * CXR in the a.m. TR * GI prophylaxis: Omeprazole 20 mg twice a day * Diet: Heart healthy diet, thiamine and folic acid supplementation * DVT prophylaxis: Heparin * Full code AM team: Follow-up with radiology to comment on integrity of the ribs on left chest wall to rule out fracture. Follow-up drug detox Holding HCTZ, lisinopril and spironolactone. Restarted with clinical improvement
[2016-06-03 21:00] VITALS: BP 145/92
[2016-06-04] VITALS (12 sets, daily range): BP systolic 124–148; BP diastolic 72–90
--- NOTE | 2016-06-04 00:27 | Admission Certification ---
Admission Certification Certification Statement - As attending physician, I certify that at the time of - admission, based on clinical presentation, severity of - symptoms, need for further diagnostic testing and - therapeutic interventions, and risk of adverse outcomes - without in-hospital treatment, in my clinical assessment, - this patient requires an acute hospital stay for a minimum - of two nights or longer. I have also considered psychsocial - factors such as support system, advanced age, financial - issues, cognitive issues, and failed out-patient treatments, - past re-admission history, safety of patient, and lack of - compliance as applicable. Specific rationale supporting this admission is: Alcoholism, alcohol related seizure, ELENI
--- NOTE | 2016-06-04 08:14 | PN- Housestaff ---
RODRIGO PIKE,[facility] 06/04/16 0813: Subjective Follow-up For: alcohol withdrawal possible alcohol withdrawal seizures Subjective: Patient is seen and examined at bedside. He is awake and oriented but appears in mild distress, reports pain in the back, on the lower ribs. denies headache, reports dizziness, chest pain or palpitation. denies nausea vomiting or abdominal pain. Review of Systems Constitutional: Denies: chills, fever. EENTM: Denies: blurred vision. Cardiovascular: Denies: chest pain, palpitations, peripheral edema. Respiratory: Reports: short of breath. Denies: cough. Gastrointestinal: Reports: no symptoms. Genitourinary: Reports: no symptoms. Musculoskeletal: Reports: back pain. Skin: Reports: no symptoms. Neurological/Psychological: Reports: tremors. Objective Last 24 Hrs of Vital Signs/I&O Vital Signs Date Time Temp Pulse Resp B/P Pulse O2 O2 Flow FiO2 Ox Delivery Rate 06/04 1554 98.4 106 18 124/72 94 06/04 1200 97.8 102 18 148/80 06/04 1111 102 148/80 06/04 1107 102 148/80 06/04 0931 Room Air 06/04 0801 97.8 102 18 148/80 94 Room Air 06/04 0600 97.8 86 16 128/80 06/04 0400 98.2 100 18 140/90 06/04 0200 98.0 98 16 148/80 06/04 0030 98.0 80 16 148/88 06/03 2100 98.2 85 20 145/92 06/03 1947 98.0 92 20 152/88 06/03 1944 98.0 92 20 150/82 98 Nasal 3.0L Cannula 06/03 1900 98.2 80 20 135/90 06/03 1747 98.1 95 20 156/100 97 Room Air Intake & Output 06/04 1600 06/04 0800 06/04 0000 Intake Total 550 120 200 Output Total 200 100 Balance 350 120 100 Intake, Oral 550 120 200 Number 0 Bowel Movements Output, Urine 200 100 Patient 113.398 kg Weight Physical Exam General Appearance: Alert, Oriented X3, Cooperative, Mild Distress Skin: No Rashes, No Breakdown, No Significant Lesion HEENT: Atraumatic, EOMI Neck: Supple Cardiovascular: Normal S1, Normal S2, No Murmurs Abdomen: Normal Bowel Sounds, Soft, tenderness on the lower posterior rib cage on the right side Neurological: Normal Speech, Strength at 5/5 X4 Ext, Normal Tone, Sensation Intact, Cranial Nerves 3-12 NL Extremities: No Edema, Normal Pulses Vascular: Pulses Symmetrical Current Medications: Current Medications Sig/Nadia Start time Last Medication Dose Route Stop Time Status Admin Acetaminophen 650 MG Q6P PRN 06/03 2145 AC PO Aspirin 81 MG DAILY 06/04 1000 AC 06/04 PO 1106 Carvedilol 25 MG BID 06/04 1000 AC 06/04 PO 1107 Folic Acid 1 MG DAILY 06/04 1000 AC 06/04 PO 1107 Heparin Sodium 5,000 UNIT Q8 06/04 0600 AC 06/04 (Porcine) SC 1502 Isosorbide Dinitrate 20 MG TID 06/03 2330 AC 06/04 PO 1111 Lorazepam 2 MG Q8 06/03 2200 AC 06/04 PO 1507 Lorazepam 0 Q1P PRN 06/03 2200 AC IV Omeprazole 20 MG BID 06/04 1000 AC 06/04 PO 1107 Oxycodone/ 1 TAB Q6P PRN 06/03 2145 AC Acetaminophen PO Oxycodone/ 2 TAB Q6P PRN 06/03 2145 AC 06/03 Acetaminophen PO 2230 Sertraline HCl 150 MG DAILY 06/04 1000 AC 06/04 PO 1108 Sodium Chloride 500 ML BOLUS ONE 06/03 2245 DC IV 06/04 0844 Sodium Chloride 1,000 ML Q10H 06/03 2200 DC 06/03 IV 06/04 0759 2231 Sodium Chloride 500 ML BOLUS ONE 06/03 1615 DC IV 06/03 1714 Thiamine HCl 100 MG DAILY 06/04 1000 AC 06/04 PO 1107 Last 24 Hrs of Lab/Huber Results Last 24 Hrs of Labs/Mics: Laboratory Tests 06/04/16 1245: Urine Opiates Screen 279.00, Methadone Screen < 40, Barbiturate Screen < 60, Ur Phencyclidine Scrn < 6.00, Amphetamines Screen < 100, U Benzodiazepines Scrn > 800 H, Urine Cocaine Screen > 1000 H, Urine Cannabis Screen < 5.00 06/04/16 0730: Anion Gap 10, Estimated GFR > 60, BUN/Creatinine Ratio 20.0, CBC w Diff NO MAN DIFF REQ, RBC 5.64, MCV 92.9, MCH 31.2 H, RDW 16.0 H, MPV 8.5, Gran % 76.9 H, Lymphocytes % 7.7 L, Monocytes % 11.8 H, Eosinophils % 3.3, Basophils % 0.3, Absolute Granulocytes 4.4, Absolute Lymphocytes 0.4 L, Absolute Monocytes 0.7 H, Absolute Eosinophils 0.2, Absolute Basophils 0, PUBS MCHC 33.6 06/04/16 0105: Lactic Acid 0.8 06/04/16 0105: Anion Gap 12, Estimated GFR > 60, BUN/Creatinine Ratio 18.3 06/03/16 2229: Methadone Screen Cancelled, Barbiturate Screen Cancelled, Ur Phencyclidine Scrn Cancelled, Amphetamines Screen Cancelled, U Benzodiazepines Scrn Cancelled, Urine Cocaine Screen Cancelled, Urine Cannabis Screen Cancelled Assessment/Plan Assessment: This is a 51-year-old gentleman with past medical history as well as multiple substance abuse who presented to the emergency department following decreased mentation and consciousness likely attributed due to subclinical seizures or syncope. Alcohol Related Seizures Consuming approximately 1 pint of vodka per day. His last alcoholic drink was on 06/03/2016. * Ativan per CIWA * Urinary toxicology * thiamine and folic acid Lactic acidosis and ELENI On admission had an increased lactic acidosis of 3.1 which came down to 0.8 after hydration. also Cr came down to 1.0 from 1.4 on admission. * Discontinued further IV hydration * Repeat BEP in am Possible seizures Patient reports episodes shaking and losing consciousness with alcohol withdrawal. however remembers his body shakes, which makes seizures unlikely. * F/U neurology consult in a.m. * F/U EEG History of AICD and nonischemic cardiomyopathy Patient is on Coreg and has a history of cocaine abuse. * Cardiology consult regarding continuation of Coreg * F/U Urine toxicology Hyponatremia On admission patient's sodium level was 130. Likely due to decreased by mouth intake and dehydration. Patient received gentle hydration, today Na 132. * Repeat BEP in a.m. * Avoid rapid correction of sodium over the 24 hour period. Limited to less than 8 mEq over 24 hours. History of hypertension Hold lisinopril and Aldactone due to elevation in creatinine (1.4). * Monitor BEP in a.m. * Once creatinine results can resume medications. Diet * heart healthy DVT prophylaxis * Lovenox Code * full code Problem List: 1. HFrEF (heart failure with reduced ejection fraction) 2. Cocaine abuse 3. Alcohol dependence Pain Ratin Pain Location: no pain Pain Goal: Pain 4 or less Pain Plan: mild pp Tomorrow's Labs & Rationales: BEP (elevated Cr, hyponatremia, monitor electrolytes) ELIZABETH PIKE,JBMaddi 06/04/16 0956: Attending MD Review Statement Attending Statement Attending MD Statement: examined this patient, discuss w/resident/PA/DELINQUENT NOTICE MACHINE OPERATOR, agreed w/resident/PA/DELINQUENT NOTICE MACHINE OPERATOR, reviewed EMR data (avail), discussed with nursing, discussed with case mgmt, amended to note Attending Assessment/Plan: Patient seen and examined. Awake but confused. Motor respiratory or painful distress. Unable is present at the bedside. Patient is agitated or tremulous. He is hemodynamically stable. His CIWA has not been elevated so far today. His head CT shows no acute intracranial process. His friend reports that he has been falling frequently at home and that his gait is very unsteady. Another concern is that patient actively uses cocaine. His urine drug screen was markedly positive last month. He is on beta sayra therapy due to his cardiomyopathy. On examination he is confused. He does not have any focal deficits. Diminished air entry bilaterally. Heart sounds are regular. Abdomen is soft and nontender. She is peripheral edema. Recommendations: -Maintain seizure precautions. Obtain EEG. Neurology consultation. -Maintain aspiration precautions and continue bronchodilator therapy. -Continue CIWA protocol. Taper down standing dose of Ativan if he is not requiring the when necessary doses. -Renal function has improved. Hold off on the IV hydration.
[2016-06-04 08:28] LABS: ABSOLUTE BASOPHIL COUNT 0 /CUMM (0.0-0.2); ABSOLUTE EOSINOPHIL COUNT 0.2 /CUMM (0.0-0.7); ABSOLUTE GRANULOCYTE CT 4.4 /CUMM (1.4-6.5); ABSOLUTE LYMPH COUNT 0.4 /CUMM (1.2-3.4); ABSOLUTE MONOCYTE COUNT 0.7 /CUMM (0.10-0.60); BASOPHIL % 0.3 % (0.0-2.0); EOSINOPHIL % 3.3 % (0-5); GRANULOCYTE % 76.9 % (42.2-75.2); HEMATOCRIT 52.4 % (42-52); MEAN CORPUSCULAR HGB 31.2 PG (27.0-31.0); MEAN CORPUSCULAR HGB CONC 33.6 G/DL (33.0-37.0); MEAN CORPUSCULAR VOLUME 92.9 FL (80.0-94.0); MEAN PLATELET VOLUME 8.5 FL (7.4-10.4); PLATELET COUNT 122 /CUMM (130-400); RED BLOOD CELL CT 5.64 /CUMM (4.70-6.10); WHITE BLOOD CELL COUNT 5.8 /CUMM (4.8-10.8)
--- NOTE | 2016-06-04 10:29 | RADIOLOGY REPORT ---
EXAMINATION: XR PORTABLE CHEST CLINICAL INFORMATION: Alcoholic with aspiration risk. COMPARISON: 06/03/2016 TECHNIQUE: Portable AP 85 degrees upright view of the chest was obtained. FINDINGS: Cervical spinal instrumentation is identified. A left pectoral pacemaker with right atrial and ventricular leads identified. Lung volumes are decreased but clear without consolidation or atelectasis. No pulmonary edema. IMPRESSION: Lungs and pleural spaces are clear. No acute process seen.
--- NOTE | 2016-06-04 15:50 | Cons- Cardiology ---
General Information and HPI Consulting Request Date of Consult: 06/04/16 Requested By: SAVANNA CANTRELL MD Reason for Consult: Syncope and/or seizure and a patient with known nonischemic cardiomyopathy with defibrillator Source of Information: patient, old records Exam Limitations: poor historian History of Present Illness: Mr. Coles is a 51-year-old man with known nonischemic cardiomyopathy, status post defibrillator implantation. This is a [employer] CD [id number] defibrillator implanted 05/03/[address] at [facility] [address] Dr. Fletcher Buchanan. It is now followed by Dr. Norman Lyles. This is not a biventricular device. The patient's last ejection fraction was 50-55% on 05/09/2016. Previously he had had an ejection fraction in the 10-15% range in 2013 and that is when he had his defibrillator implanted. He also had sustained ventricular tachycardia runs at that time. The patient was most recently here 3 weeks ago for recurrent pancreatitis secondary to alcohol abuse. The patient also abuses cocaine. The patient presents now with question of seizures or syncopal episodes. Over the past 2 days he apparently has had altered mental status as well as seizures. He was seen at [facility] emergency room yesterday or the day before but signed out AMA. The patient was admitted yesterday after presenting to the emergency room complaining of unconscious spell for at least 1 minute with a fall. He also had a fall 2 days ago and has back pain from this. The patient admits to having been drinking more lately but cannot give me a good history of how much and when. He states he used cocaine about 4 days ago. He is currently denying chest pain or shortness of breath. He is only complaining of back pain. The patient did apparently have a witnessed seizure in the emergency department. He was given 10 mg of Valium in the emergency department. He apparently has not had any further seizures since then, which was almost 24 hours ago. Allergies/Medications Allergies: Coded Allergies: NO KNOWN ALLERGIES (06/03/16) Home Med List: Aspirin (Aspirin*) 81 MG TAB.CHEW 81 MG PO DAILY heart health Carvedilol 25 MG TABLET 1 TAB PO BID HEART (Reported) Cholecalciferol (Vitamin D3) (Vitamin D) (Unknown Strength) TABLET (Unknown Dose) PO DAILY SUPPLEMENT (Reported) Clindamycin Phosphate 60 ML SOLUTION 1 MAUREEN TOP DAILY AFFECTED AREA(S) ( Reported) apply to affected area(s) Docusate Sodium (Colace) 100 MG CAPSULE 1 CAP PO PRN STOOL SOFTENER (Reported ) HYDRALAZINE HCL (Hydralazine HCl) 25 MG TABLET 1 TAB PO TID HEART HEALTH ( Reported) Isosorbide Dinitrate (Isordil (Sorbitrate 20MG)) 20 MG TABLET 1 TAB TID HEART HEALTH (Reported) Lisinopril 10 MG TABLET 1 TAB PO DAILY BLOOD PRESSURE Magnesium Oxide 400 MG TABLET 1 TAB PO BID VITAMIN SUPPORT (Reported) Methylcellulose (Fiber) (Unknown Strength) TABLET (Unknown Dose) PO DAILY SUPPLEMENT (Reported) Omeprazole 20 MG TABLET.DR 1 TAB PO BID GI (Reported) Potassium Chloride 10 MEQ TABLET.ER 2 TAB PO BID SUPPLEMENT (Reported) Sertraline HCl 100 MG TABLET 1.5 TAB PO DAILY MENTAL HEALTH (Reported) Spironolactone (Aldactone 25 MG Tablet) 25 MG TABLET 0.5 TAB PO DAILY HEART HEALTH (Reported) Current Medications: Current Medications Sig/Nadia Start time Last Medication Dose Route Stop Time Status Admin Acetaminophen 650 MG Q6P PRN 06/03 2145 AC PO Aspirin 81 MG DAILY 06/04 1000 AC 06/04 PO 1106 Carvedilol 25 MG BID 06/04 1000 AC 06/04 PO 1107 Diazepam 10 MG ONCE ONE 06/03 1615 DC 06/03 IV 06/03 1616 1610 Folic Acid 1 MG DAILY 06/04 1000 AC 06/04 PO 1107 Heparin Sodium 5,000 UNIT Q8 06/04 0600 AC 06/04 (Porcine) SC 1502 Isosorbide Dinitrate 20 MG TID 06/03 2330 AC 06/04 PO 1111 Lorazepam 2 MG Q8 06/03 2200 AC 06/04 PO 1507 Lorazepam 0 Q1P PRN 06/03 2200 AC IV Omeprazole 20 MG BID 06/04 1000 AC 06/04 PO 1107 Oxycodone/ 1 TAB Q6P PRN 06/03 2145 AC Acetaminophen PO Oxycodone/ 2 TAB Q6P PRN 06/03 2145 AC 06/03 Acetaminophen PO 2230 Sertraline HCl 150 MG DAILY 06/04 1000 AC 06/04 PO 1108 Sodium Chloride 500 ML BOLUS ONE 06/03 2245 DC IV 06/04 0844 Sodium Chloride 1,000 ML Q10H 06/03 2200 DC 06/03 IV 06/04 0759 2231 Sodium Chloride 500 ML BOLUS ONE 06/03 1615 DC IV 06/03 1714 Thiamine HCl 100 MG DAILY 06/04 1000 AC 06/04 PO 1107 Review of Systems Review of Systems: He is complaining of back pain Past History Travel History Traveled to [place] past 21 day No Medical History Blood Transfusion Hx: No Neurological: seizure EENT: NONE Cardiovascular: CHF, VTACH, PPM, CHF, HTN LCW PACEMAKER Respiratory: NONE Gastrointestinal: diverticulitis, pancreatitis Hepatic: NONE Renal: "KIDNEY PROBLEMS" ACUTE KIDNEY FAILURE Musculoskeletal: NECK/BACK FX Psychiatric: anxiety Endocrine: NONE Blood Disorders: NONE Cancer(s): NONE 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 Home Who Do You Live With? multiple family members Services at Home: None Primary Language: Sami Smoking Status: Current Everyday Smoker ETOH Use: heavy use Illicit Drug Use: cocaine, Last use was 3 days ago. Functional Ability ADLs Independent: dressing, eating, toileting, bathing. Ambulation: independent IADLs Independent: shopping, housework, finances, food prep, telephone, transportation , medication admin. ECHO Results (as available) Report: 1. Minimal aortic sclerosis is present in a tricuspid aortic valve with no evidence of valvular stenosis or insufficiency. 2. Mitral leaflet thickening is present with chordal fibrosis and moderate mitral insufficiency with moderate left atrial dilatation. 3. There is no significant pericardial fluid detected. 4. The left ventricular chamber is moderately dilated (67 mm ITZEL) with eccentric hypertrophy and severe global hypokinesia. The estimated ejection fraction is approximately 10-15%. There is evidence of elevated left ventricular end diastolic pressure. 5. Mild right ventricular dilatation is present with mild to moderate right atrial dilatation, moderate to severe tricuspid insufficiency, mild to moderate pulmonic insufficiency and pulmonary hypertension with an estimated RV systolic pressure of at least 46 mmHg. Systolic flow reversal is present in the hepatic veins. 6. A prominent moderator band is present. 7. A small amount of ascites is noted. 8. Moderate ventricular ectopy is present. Exam & Diagnostic Data Vital Signs and I&O Vital Signs Date Time Temp Pulse Resp B/P Pulse O2 O2 Flow FiO2 Ox Delivery Rate 06/04 1200 97.8 102 18 148/80 06/04 1111 102 148/80 06/04 1107 102 148/80 06/04 0931 Room Air 06/04 0801 97.8 102 18 148/80 94 Room Air 06/04 0600 97.8 86 16 128/80 06/04 0400 98.2 100 18 140/90 06/04 0200 98.0 98 16 148/80 06/04 0030 98.0 80 16 148/88 06/03 2100 98.2 85 20 145/92 06/03 1947 98.0 92 20 152/88 06/03 1944 98.0 92 20 150/82 98 Nasal 3.0L Cannula 06/03 1900 98.2 80 20 135/90 06/03 1747 98.1 95 20 156/100 97 Room Air Intake & Output 06/04 1600 06/04 0800 06/04 0000 06/03 1600 06/03 0800 06/03 0000 Intake Total 550 120 200 Output Total 200 100 Balance 350 120 100 Intake, Oral 550 120 200 Number 0 Bowel Movements Output, Urine 200 100 Patient 250 lb 245 lb Weight Physical Exam: He is a somewhat somnolent morbidly obese middle-aged male difficult to arouse and snoring loudly HEENT exam grossly normal Chest decreased breath sounds throughout Heart regular rhythm and no murmurs. Defibrillator is noted in the left upper anterior chest wall. Abdomen is obese Extremities no edema Labs/Huber Results: Laboratory Tests 06/04 06/04 06/04 1245 0730 0105 Chemistry Sodium (137 - 145 mmol/L) 132 L Potassium (3.5 - 5.1 mmol/L) 4.5 Chloride (98 - 107 mmol/L) 92 L Carbon Dioxide (22 - 30 mmol/L) 30 Anion Gap (5 - 16) 10 BUN (9 - 20 mg/dL) 20 Creatinine (0.7 - 1.2 mg/dL) 1.0 Estimated GFR (>60 ml/min) > 60 BUN/Creatinine Ratio (7 - 25 %) 20.0 Lactic Acid (0.7 - 2.1 mmol/L) 0.8 Hematology CBC w Diff NO MAN DIFF REQ WBC (4.8 - 10.8 /CUMM) 5.8 RBC (4.70 - 6.10 /CUMM) 5.64 Hgb (14.0 - 18.0 G/DL) 17.6 Hct (42 - 52 %) 52.4 H MCV (80.0 - 94.0 FL) 92.9 MCH (27.0 - 31.0 PG) 31.2 H RDW (11.5 - 14.5 %) 16.0 H Plt Count (130 - 400 /CUMM) 122 L MPV (7.4 - 10.4 FL) 8.5 Gran % (42.2 - 75.2 %) 76.9 H Lymphocytes % (20.5 - 51.1 %) 7.7 L Monocytes % (1.7 - 9.3 %) 11.8 H Eosinophils % (0 - 5 %) 3.3 Basophils % (0.0 - 2.0 %) 0.3 Absolute Granulocytes (1.4 - 6.5 /CUMM) 4.4 Absolute Lymphocytes (1.2 - 3.4 /CUMM) 0.4 L Absolute Monocytes (0.10 - 0.60 /CUMM) 0.7 H Absolute Eosinophils (0.0 - 0.7 /CUMM) 0.2 Absolute Basophils (0.0 - 0.2 /CUMM) 0 PUBS MCHC (33.0 - 37.0 G/DL) 33.6 Toxicology Urine Opiates Screen (>2000 NG/ML) 279.00 Methadone Screen (>300 NG/ML) < 40 Barbiturate Screen (>200 NG/ML) < 60 Ur Phencyclidine Scrn (>25 NG/ML) < 6.00 Amphetamines Screen (>1000 NG/ML) < 100 U Benzodiazepines Scrn (>200 NG/ML) > 800 H Urine Cocaine Screen (>300 NG/ML) > 1000 H Urine Cannabis Screen (>50 NG/ML) < 5.00 06/04 06/03 06/03 0105 2229 1615 Chemistry Sodium (137 - 145 mmol/L) 131 L 130 L Potassium (3.5 - 5.1 mmol/L) 4.6 4.0 Chloride (98 - 107 mmol/L) 90 L 90 L Carbon Dioxide (22 - 30 mmol/L) 29 23 Anion Gap (5 - 16) 12 16 BUN (9 - 20 mg/dL) 22 H 24 H Creatinine (0.7 - 1.2 mg/dL) 1.2 1.4 H Estimated GFR (>60 ml/min) > 60 54 L BUN/Creatinine Ratio (7 - 25 %) 18.3 17.1 Glucose (65 - 99 mg/dL) 160 H Lactic Acid (0.7 - 2.1 mmol/L) 3.1 H Calcium (8.4 - 10.2 mg/dL) 9.3 Phosphorus (2.5 - 4.5 mg/dL) 3.9 Magnesium (1.6 - 2.3 mg/dL) 1.7 Total Bilirubin (0.2 - 1.3 mg/dL) 1.3 AST (17 - 59 U/L) 40 ALT (21 - 72 U/L) 56 Alkaline Phosphatase (< 127 U/L) 84 Troponin I (<0.11 ng/ml) < 0.01 Total Protein (6.3 - 8.2 g/dL) 7.5 Albumin (3.5 - 5.0 g/dL) 4.6 Globulin (1.9 - 4.2 gm/dL) 2.9 Albumin/Globulin Ratio (1.1 - 2.2 %) 1.6 Lipase (23 - 300 U/L) 256 Hematology CBC w Diff NO MAN DIFF REQ WBC (4.8 - 10.8 /CUMM) 9.1 RBC (4.70 - 6.10 /CUMM) 5.44 Hgb (14.0 - 18.0 G/DL) 17.1 Hct (42 - 52 %) 51.0 MCV (80.0 - 94.0 FL) 93.8 MCH (27.0 - 31.0 PG) 31.4 H RDW (11.5 - 14.5 %) 15.4 H Plt Count (130 - 400 /CUMM) 135 MPV (7.4 - 10.4 FL) 8.1 Gran % (42.2 - 75.2 %) 78.2 H Lymphocytes % (20.5 - 51.1 %) 6.8 L Monocytes % (1.7 - 9.3 %) 12.0 H Eosinophils % (0 - 5 %) 2.1 Basophils % (0.0 - 2.0 %) 0.9 Absolute Granulocytes (1.4 - 6.5 /CUMM) 7.1 H Absolute Lymphocytes (1.2 - 3.4 /CUMM) 0.6 L Absolute Monocytes (0.10 - 0.60 /CUMM) 1.1 H Absolute Eosinophils (0.0 - 0.7 /CUMM) 0.2 Absolute Basophils (0.0 - 0.2 /CUMM) 0.1 PUBS MCHC (33.0 - 37.0 G/DL) 33.4 Toxicology Methadone Screen Cancelled Barbiturate Screen Cancelled Ur Phencyclidine Scrn Cancelled Amphetamines Screen Cancelled U Benzodiazepines Scrn Cancelled Urine Cocaine Screen Cancelled Urine Cannabis Screen Cancelled Serum Alcohol (<10 MG/DL) 19.0 06/03 1612 Toxicology Methadone Screen Cancelled Barbiturate Screen Cancelled Ur Phencyclidine Scrn Cancelled Amphetamines Screen Cancelled U Benzodiazepines Scrn Cancelled Urine Cocaine Screen Cancelled Urine Cannabis Screen Cancelled Diagnostic Data EKG Results Admission EKG shows sinus tachycardia rate of 100 probable left atrial abnormality and no other major abnormalities. Repeat EKG this morning shows sinus rhythm rate of 93 and appears to be mostly within normal limits. CXR Results PATIENT: AHSAN COLES PRESENT AGE: 51 PATIENT ACCOUNT NO: [id number] : 67 LOCATION: 2NB ORDERING PHYSICIAN: KIRAN TRAN MD SERVICE DATE: 06/04/16 EXAM TYPE: RAD - XRY-PORTABLE CHEST XRAY EXAMINATION: XR PORTABLE CHEST CLINICAL INFORMATION: Alcoholic with aspiration risk. COMPARISON: 06/03/2016 TECHNIQUE: Portable AP 85 degrees upright view of the chest was obtained. FINDINGS: Cervical spinal instrumentation is identified. A left pectoral pacemaker with right atrial and ventricular leads identified. Lung volumes are decreased but clear without consolidation or atelectasis. No pulmonary edema. IMPRESSION: Lungs and pleural spaces are clear. No acute process seen. DICTATED BY: SYEDA HURT MD DATE/TIME DICTATED:06/04/16928 INSTRUCTIONAL TECHNOLOGY COACH:LATASHA DATE/TIME TRANSCRIBED:06/04/16928 CONFIDENTIAL, DO NOT COPY WITHOUT APPROPRIATE AUTHORIZATION. <Electronically signed in Other Vendor System> SIGNED BY: SYEDA HURT MD 06/04/16 1029 Other Results CONCLUSIONS 1. THis was a technically difficult and very limited examination with markedly suboptimal apical images. 2. Aortic sclerosis is present with no valvular stenosis or insufficiency, 3. Mitral leaflet thickening is present. 4. There is no significant pericardial fluid detected. 5. The left ventricular chamber size appears normal. Mild concentric hypertrophy is present. Accurate wall motion assessment was not possible. The ejection fraction appears to be about 50-55%. 6. The right heart structures were not optimally visualized. The RV systolic pressure could not be accurately assessed. Mld pulmonic insufficiency is present. 7. If clinically indicated, a MUGA scan might be useful to better assess LV systolic function. Chelsie Stratton M.D. (Electronically Signed) Final Date: 10 May 2016 09:37 Assessment/Plan Assessment/Plan This patient presents with at least one documented seizure and also history of other periods of loss of consciousness. This is most likely alcohol withdrawal related seizures. However the patient has a past history of sustained ventricular tachycardia and has a defibrillator in place. He has underlying nonischemic cardiomyopathy with some improvement in his ejection fraction over the past few years. He does not have any evidence of congestive heart failure at this time. His EKG is unremarkable. His initial troponin was negative and was not repeated. His alcohol level was relatively low on admission suggesting that he was in withdrawal period. His U tox is positive for benzodiazepine and cocaine and morphine. At this point I don't think there is a cardiac component to his presentation. However in view of his past medical history with known cardiomyopathy and ventricular arrhythmias we will have his device interrogated to see if there were any arrhythmias documented recently. If there were we will move him to telemetry. If they were not then we can concentrate on his metabolic and neurologic status. I would continue him on his usual cardiac medications at this time pending further evaluation. Consult Acknowledgment - Thank you for your consult request.
--- NOTE | 2016-06-04 16:00 | Cons- Neurology ---
General Information and HPI Consulting Request Date of Consult: 06/04/16 Requested By: SAVANNA CANTRELL MD History of Present Illness: Patient extremely somnolent and difficult to get history from the patient Currently he is snoring loudly Medical records after repeated episodes of blackouts Was a question of possible seizure He had been seen at [facility] emergency room but apparently signed out AMA yesterday Medical records indicate that over the past 2 days he has had alteration of mentation and seizures Is also complaint of abdominal pain and possible chest pains Patient has history of alcohol use. Allergies/Medications Allergies: Coded Allergies: NO KNOWN ALLERGIES (06/03/16) Home Med List: Aspirin (Aspirin*) 81 MG TAB.CHEW 81 MG PO DAILY heart health Carvedilol 25 MG TABLET 1 TAB PO BID HEART (Reported) Cholecalciferol (Vitamin D3) (Vitamin D) (Unknown Strength) TABLET (Unknown Dose) PO DAILY SUPPLEMENT (Reported) Clindamycin Phosphate 60 ML SOLUTION 1 MAUREEN TOP DAILY AFFECTED AREA(S) ( Reported) apply to affected area(s) Docusate Sodium (Colace) 100 MG CAPSULE 1 CAP PO PRN STOOL SOFTENER (Reported ) HYDRALAZINE HCL (Hydralazine HCl) 25 MG TABLET 1 TAB PO TID HEART HEALTH ( Reported) Isosorbide Dinitrate (Isordil (Sorbitrate 20MG)) 20 MG TABLET 1 TAB TID HEART HEALTH (Reported) Lisinopril 10 MG TABLET 1 TAB PO DAILY BLOOD PRESSURE Magnesium Oxide 400 MG TABLET 1 TAB PO BID VITAMIN SUPPORT (Reported) Methylcellulose (Fiber) (Unknown Strength) TABLET (Unknown Dose) PO DAILY SUPPLEMENT (Reported) Omeprazole 20 MG TABLET.DR 1 TAB PO BID GI (Reported) Potassium Chloride 10 MEQ TABLET.ER 2 TAB PO BID SUPPLEMENT (Reported) Sertraline HCl 100 MG TABLET 1.5 TAB PO DAILY MENTAL HEALTH (Reported) Spironolactone (Aldactone 25 MG Tablet) 25 MG TABLET 0.5 TAB PO DAILY HEART HEALTH (Reported) Current Medications: Current Medications Sig/Nadia Start time Last Medication Dose Route Stop Time Status Admin Acetaminophen 650 MG Q6P PRN 06/03 2145 AC PO Aspirin 81 MG DAILY 06/04 1000 AC 06/04 PO 1106 Carvedilol 25 MG BID 06/04 1000 AC 06/04 PO 1107 Diazepam 10 MG ONCE ONE 06/03 1615 DC 06/03 IV 06/03 1616 1610 Folic Acid 1 MG DAILY 06/04 1000 AC 06/04 PO 1107 Heparin Sodium 5,000 UNIT Q8 06/04 0600 AC 06/04 (Porcine) SC 1502 Isosorbide Dinitrate 20 MG TID 06/03 2330 AC 06/04 PO 1111 Lorazepam 2 MG Q8 06/03 2200 AC 06/04 PO 1507 Lorazepam 0 Q1P PRN 06/03 2200 AC IV Omeprazole 20 MG BID 06/04 1000 AC 06/04 PO 1107 Oxycodone/ 1 TAB Q6P PRN 06/03 2145 AC Acetaminophen PO Oxycodone/ 2 TAB Q6P PRN 06/03 2145 AC 06/03 Acetaminophen PO 2230 Sertraline HCl 150 MG DAILY 06/04 1000 AC 06/04 PO 1108 Sodium Chloride 500 ML BOLUS ONE 06/03 2245 DC IV 06/04 0844 Sodium Chloride 1,000 ML Q10H 06/03 2200 DC 06/03 IV 06/04 0759 2231 Sodium Chloride 500 ML BOLUS ONE 06/03 1615 DC IV 06/03 1714 Thiamine HCl 100 MG DAILY 06/04 1000 AC 06/04 PO 1107 Review of Systems Review of Systems: Unable to assess due to somnolence Past History Travel History Traveled to [place] past 21 day No Medical History Blood Transfusion Hx: No Neurological: seizure EENT: NONE Cardiovascular: CHF, VTACH, PPM, CHF, HTN LCW PACEMAKER Respiratory: NONE Gastrointestinal: diverticulitis, pancreatitis Hepatic: NONE Renal: "KIDNEY PROBLEMS" ACUTE KIDNEY FAILURE Musculoskeletal: NECK/BACK FX Psychiatric: anxiety Endocrine: NONE Blood Disorders: NONE Cancer(s): NONE 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 Home Who Do You Live With? multiple family members Services at Home: None Primary Language: Turkmen Smoking Status: Current Everyday Smoker ETOH Use: heavy use Illicit Drug Use: cocaine, Last use was 3 days ago. Functional Ability ADLs Independent: dressing, eating, toileting, bathing. Ambulation: independent IADLs Independent: shopping, housework, finances, food prep, telephone, transportation , medication admin. Exam & Diagnostic Data Vital Signs and I&O Vital Signs Date Time Temp Pulse Resp B/P Pulse O2 O2 Flow FiO2 Ox Delivery Rate 06/04 1554 98.4 106 18 124/72 94 06/04 1200 97.8 102 18 148/80 06/04 1111 102 148/80 06/04 1107 102 148/80 06/04 0931 Room Air 06/04 0801 97.8 102 18 148/80 94 Room Air 06/04 0600 97.8 86 16 128/80 06/04 0400 98.2 100 18 140/90 06/04 0200 98.0 98 16 148/80 06/04 0030 98.0 80 16 148/88 06/03 2100 98.2 85 20 145/92 06/03 1947 98.0 92 20 152/88 06/03 1944 98.0 92 20 150/82 98 Nasal 3.0L Cannula 06/03 1900 98.2 80 20 135/90 06/03 1747 98.1 95 20 156/100 97 Room Air Intake & Output 06/04 1600 06/04 0800 06/04 0000 Intake Total 550 120 200 Output Total 200 100 Balance 350 120 100 Intake, Oral 550 120 200 Number 0 Bowel Movements Output, Urine 200 100 Patient 250 lb Weight Physical Exam: Somnolent briefly arousable Heart sounds normal, no carotid bruits, distal pulses intact Pupils react, extraocular movements full, fundi cannot be assessed, no focal weakness, palate tongue and shoulders appear midline, appears to hear Normal tone and strength, moves all extremities equally Withdraws to noxious stimuli equally Hyporeflexic According to functions grossly intact Gait not assessed due to somnolence Last 48 Hours of Lab Results: Laboratory Tests 06/04 06/04 06/04 1245 0730 0105 Chemistry Sodium (137 - 145 mmol/L) 132 L Potassium (3.5 - 5.1 mmol/L) 4.5 Chloride (98 - 107 mmol/L) 92 L Carbon Dioxide (22 - 30 mmol/L) 30 Anion Gap (5 - 16) 10 BUN (9 - 20 mg/dL) 20 Creatinine (0.7 - 1.2 mg/dL) 1.0 Estimated GFR (>60 ml/min) > 60 BUN/Creatinine Ratio (7 - 25 %) 20.0 Lactic Acid (0.7 - 2.1 mmol/L) 0.8 Hematology CBC w Diff NO MAN DIFF REQ WBC (4.8 - 10.8 /CUMM) 5.8 RBC (4.70 - 6.10 /CUMM) 5.64 Hgb (14.0 - 18.0 G/DL) 17.6 Hct (42 - 52 %) 52.4 H MCV (80.0 - 94.0 FL) 92.9 MCH (27.0 - 31.0 PG) 31.2 H RDW (11.5 - 14.5 %) 16.0 H Plt Count (130 - 400 /CUMM) 122 L MPV (7.4 - 10.4 FL) 8.5 Gran % (42.2 - 75.2 %) 76.9 H Lymphocytes % (20.5 - 51.1 %) 7.7 L Monocytes % (1.7 - 9.3 %) 11.8 H Eosinophils % (0 - 5 %) 3.3 Basophils % (0.0 - 2.0 %) 0.3 Absolute Granulocytes (1.4 - 6.5 /CUMM) 4.4 Absolute Lymphocytes (1.2 - 3.4 /CUMM) 0.4 L Absolute Monocytes (0.10 - 0.60 /CUMM) 0.7 H Absolute Eosinophils (0.0 - 0.7 /CUMM) 0.2 Absolute Basophils (0.0 - 0.2 /CUMM) 0 PUBS MCHC (33.0 - 37.0 G/DL) 33.6 Toxicology Urine Opiates Screen (>2000 NG/ML) 279.00 Methadone Screen (>300 NG/ML) < 40 Barbiturate Screen (>200 NG/ML) < 60 Ur Phencyclidine Scrn (>25 NG/ML) < 6.00 Amphetamines Screen (>1000 NG/ML) < 100 U Benzodiazepines Scrn (>200 NG/ML) > 800 H Urine Cocaine Screen (>300 NG/ML) > 1000 H Urine Cannabis Screen (>50 NG/ML) < 5.00 06/04 06/03 06/03 0105 2229 1615 Chemistry Sodium (137 - 145 mmol/L) 131 L 130 L Potassium (3.5 - 5.1 mmol/L) 4.6 4.0 Chloride (98 - 107 mmol/L) 90 L 90 L Carbon Dioxide (22 - 30 mmol/L) 29 23 Anion Gap (5 - 16) 12 16 BUN (9 - 20 mg/dL) 22 H 24 H Creatinine (0.7 - 1.2 mg/dL) 1.2 1.4 H Estimated GFR (>60 ml/min) > 60 54 L BUN/Creatinine Ratio (7 - 25 %) 18.3 17.1 Glucose (65 - 99 mg/dL) 160 H Lactic Acid (0.7 - 2.1 mmol/L) 3.1 H Calcium (8.4 - 10.2 mg/dL) 9.3 Phosphorus (2.5 - 4.5 mg/dL) 3.9 Magnesium (1.6 - 2.3 mg/dL) 1.7 Total Bilirubin (0.2 - 1.3 mg/dL) 1.3 AST (17 - 59 U/L) 40 ALT (21 - 72 U/L) 56 Alkaline Phosphatase (< 127 U/L) 84 Troponin I (<0.11 ng/ml) < 0.01 Total Protein (6.3 - 8.2 g/dL) 7.5 Albumin (3.5 - 5.0 g/dL) 4.6 Globulin (1.9 - 4.2 gm/dL) 2.9 Albumin/Globulin Ratio (1.1 - 2.2 %) 1.6 Lipase (23 - 300 U/L) 256 Hematology CBC w Diff NO MAN DIFF REQ WBC (4.8 - 10.8 /CUMM) 9.1 RBC (4.70 - 6.10 /CUMM) 5.44 Hgb (14.0 - 18.0 G/DL) 17.1 Hct (42 - 52 %) 51.0 MCV (80.0 - 94.0 FL) 93.8 MCH (27.0 - 31.0 PG) 31.4 H RDW (11.5 - 14.5 %) 15.4 H Plt Count (130 - 400 /CUMM) 135 MPV (7.4 - 10.4 FL) 8.1 Gran % (42.2 - 75.2 %) 78.2 H Lymphocytes % (20.5 - 51.1 %) 6.8 L Monocytes % (1.7 - 9.3 %) 12.0 H Eosinophils % (0 - 5 %) 2.1 Basophils % (0.0 - 2.0 %) 0.9 Absolute Granulocytes (1.4 - 6.5 /CUMM) 7.1 H Absolute Lymphocytes (1.2 - 3.4 /CUMM) 0.6 L Absolute Monocytes (0.10 - 0.60 /CUMM) 1.1 H Absolute Eosinophils (0.0 - 0.7 /CUMM) 0.2 Absolute Basophils (0.0 - 0.2 /CUMM) 0.1 PUBS MCHC (33.0 - 37.0 G/DL) 33.4 Toxicology Methadone Screen Cancelled Barbiturate Screen Cancelled Ur Phencyclidine Scrn Cancelled Amphetamines Screen Cancelled U Benzodiazepines Scrn Cancelled Urine Cocaine Screen Cancelled Urine Cannabis Screen Cancelled Serum Alcohol (<10 MG/DL) 19.0 06/03 1612 Toxicology Methadone Screen Cancelled Barbiturate Screen Cancelled Ur Phencyclidine Scrn Cancelled Amphetamines Screen Cancelled U Benzodiazepines Scrn Cancelled Urine Cocaine Screen Cancelled Urine Cannabis Screen Cancelled Imaging/Other Studies: CERVICAL SPINE: No acute fracture or dislocation is identified in the cervical spine. The patient is status post multilevel anterior cervical discectomy and fusion with hardware in place from the C4-C7 levels. The atlantoaxial articulation is normally maintained. The paraspinal soft tissues are normal. The lung apices are clear. IMPRESSION: 1. No acute intracranial pathology. Mild to moderate mucosal thickening in the paranasal sinuses. 2. No evidence of acute cervical spine traumatic injury. Status post anterior cervical discectomy and fusion from C4 through C7. DICTATED BY: MATTHEW LOPEZ MD DATE/TIME DICTATED:06/03/161712 POULTRY DRESSER:LATASHA DATE/TIME TRANSCRIBED:06/03/161712 HEAD: There is no evidence of acute intracranial hemorrhage or territorial infarction. No abnormal mass effect or midline shift is seen. [place] to white matter differentiation is well preserved. No extra-axial fluid collections are identified. The ventricles are normal in size. Brain parenchymal attenuation is normal. The osseous structures and soft tissues are normal. The mastoid air cells are well aerated. There is mild to moderate mucosal thickening in the paranasal sinuses. Assessment/Plan Assessment: Syncope versus seizure Recommendations: EEG Monitor for recurrence Drug counseling Possible sleep apnea? Consult Acknowledgment - Thank you for your consult request.
--- NOTE | 2016-06-04 17:55 | Event Note ---
Event Note Event Note: The patient's daughter, Padma who stated that she is the POA for Mr. Coles wanted the medical team to contact her on [phone]. She wanted Mr. Coles to be transferred to [facility] in the a.m., but wanted to discuss with the team in the a.m. to facilitate this transfer. As per Ms. Rouse, the patient has all his medical records at [place] and it would only be prudent to continue his medical care [place]. We will relay this information to the am team.
[2016-06-05] VITALS (13 sets, daily range): BP systolic 120–172; BP diastolic 18–100
--- NOTE | 2016-06-05 09:37 | PN- Housestaff ---
Subjective Follow-up For: Alcohol withdrawal Alcohol seizures Subjective: Patient is seen and examined at bedside. Patient appears moderately drowsy and his speech is slowed, is alert and oriented 3 with intact thought process. He does endorse left-sided abdominal and lateral LEFT wall pain around his ribs chest exacerbated by coughing. He does not endorse any other complaints including chest pain, palpitation, shortness of breath, anxiety, nightmares, hallucination, seizure activities, suicidal or homicidal ideation. Patient family had initially wanted patient be transferred to [place]. However the later changed her mind and decided the patient should continue to receive treatment [facility]. Review of Systems Constitutional: Reports: no symptoms. Objective Last 24 Hrs of Vital Signs/I&O Vital Signs Date Time Temp Pulse Resp B/P Pulse O2 O2 Flow FiO2 Ox Delivery Rate 06/05 1012 94 130/81 06/05 0804 98.1 94 18 130/81 94 Room Air 06/05 0533 108 137/95 06/05 0403 97.6 106 20 172/98 93 Room Air 06/05 0400 106 172/98 06/05 0008 98.3 92 18 146/100 94 Room Air 06/05 0000 92 148/100 06/04 2148 94 150/107 06/04 1844 98.2 83 16 148/88 95 Room Air 06/04 1800 98.2 106 18 124/72 06/04 1748 106 124/72 06/04 1600 98.2 106 18 124/72 06/04 1554 98.4 106 18 124/72 94 06/04 1400 98.2 102 18 148/80 06/04 1200 97.8 102 18 148/80 Intake & Output 06/05 1600 06/05 0800 06/05 0000 Intake Total 480 480 Output Total Balance 480 480 Intake, Oral 480 480 Physical Exam General Appearance: Alert, Oriented X3, Cooperative Other Physical Findings: Skin: No Rashes, No Breakdown, No Significant Lesion HEENT: Atraumatic, EOMI Neck: Supple Cardiovascular: Normal S1, Normal S2, No Murmurs Abdomen: Normal Bowel Sounds, Soft, tenderness on the lower posterior rib cage on the right side Neurological: Normal Speech, Strength at 5/5 X4 Ext, Normal Tone, Sensation Intact, Cranial Nerves 3-12 NL Extremities: No Edema, Normal Pulses Vascular: Pulses Symmetrical Current Medications: Current Medications Sig/Nadia Start time Last Medication Dose Route Stop Time Status Admin Acetaminophen 650 MG .STK-MED ONE 06/04 2156 DC PO 06/04 2157 Acetaminophen 650 MG Q6P PRN 06/03 2145 AC PO Amlodipine Besylate 5 MG ONCE ONE 06/05 0430 DC PO 06/05 0431 Aspirin 81 MG DAILY 06/04 1000 AC 06/05 PO 1010 Carvedilol 25 MG BID 06/04 1000 DC 06/04 PO 1107 Folic Acid 1 MG DAILY 06/04 1000 AC 06/05 PO 1010 Heparin Sodium 5,000 UNIT Q8 06/04 0600 AC 06/05 (Porcine) SC 0602 Isosorbide Dinitrate 20 MG TID 06/03 2330 AC 06/05 PO 1012 Lorazepam 2 MG Q8 06/03 2200 AC 06/05 PO 0602 Lorazepam 0 Q1P PRN 06/03 2200 AC 06/05 IV 0429 Omeprazole 20 MG BID 06/04 1000 AC 06/05 PO 1010 Oxycodone/ 1 TAB Q6P PRN 06/03 2145 AC 06/05 Acetaminophen PO 0429 Oxycodone/ 2 TAB Q6P PRN 06/03 2145 AC 06/03 Acetaminophen PO 2230 Sertraline HCl 150 MG DAILY 06/04 1000 AC 06/05 PO 1010 Thiamine HCl 100 MG DAILY 06/04 1000 AC 06/05 PO 1010 Last 24 Hrs of Lab/Huber Results Last 24 Hrs of Labs/Mics: Laboratory Tests 06/05/16 0740: Anion Gap 9, Estimated GFR > 60, BUN/Creatinine Ratio 20.0, Magnesium 1.8 06/04/16 1245: Urine Opiates Screen 279.00, Methadone Screen < 40, Barbiturate Screen < 60, Ur Phencyclidine Scrn < 6.00, Amphetamines Screen < 100, U Benzodiazepines Scrn > 800 H, Urine Cocaine Screen > 1000 H, Urine Cannabis Screen < 5.00 Assessment/Plan Assessment: This is a 51-year-old gentleman with past medical history as well as multiple substance abuse who presented to the emergency department following decreased mentation and consciousness likely attributed due to subclinical seizures or syncope. Alcohol Related Seizures Consuming approximately 1 pint of vodka per day. His last alcoholic drink was on 06/03/2016. * Ativan per CIWA * Urinary toxicology * thiamine and folic acid Possible seizures Patient reports episodes shaking and losing consciousness with alcohol withdrawal. however remembers his body shakes, which makes seizures unlikely. * F/U EEG History of AICD and nonischemic cardiomyopathy Patient is on Coreg and has a history of cocaine abuse. * Cardiology consult regarding continuation of Coreg * F/U Urine toxicology Hyponatremia On admission patient's sodium level was 130. Likely due to decreased by mouth intake and dehydration. Patient received gentle hydration, today Na 132. * Repeat BEP in a.m. * Avoid rapid correction of sodium over the 24 hour period. Limited to less than 8 mEq over 24 hours. History of hypertension Hold lisinopril and Aldactone due to elevation in creatinine (1.4). * Monitor BEP in a.m. * Once creatinine results can resume medications. Diet * heart healthy DVT prophylaxis * Lovenox Code * full code Problem List: 1. Alcohol withdrawal seizure 2. Alcohol dependence 3. Cocaine abuse Pain Ratin Pain Location: left lateral chest wall Pain Goal: Remain pain free Pain Plan: per pain pathway Tomorrow's Labs & Rationales: BEP CBC
--- NOTE | 2016-06-05 11:11 | PN- Att Addend ---
Attending Addendum Attending Brief Note Patient seen and examined. He was drowsy but arousable. He was less confused today compared to yesterday. Complained of left-sided chest pain laterally. He reports the pain has been going on for 4 days. He reports that pain is reproducible and aggravated by movement. He admits to falling on that side recently. Patient reports that he attended the sleep study 3 years ago but walked out in the middle of the procedure. He has not been tested since. Daughter admits that patient most likely has sleep apnea. She reports heavy snoring at night with periods of apnea and involuntary hand movements during those episodes. She reports daytime somnolence and confusion. Patient refuses to have repeat sleep studies. Daughter reports the patient passes out frequently at home. Cardiology consultation appreciated. Arrangements have been made for interrogation of his pacemaker. Neurology consultation appreciated EEG recommended. Patient and daughter are requesting for patient to be transferred to [facility] for further management. They would like to follow-up with his physicians for her all located at [facility]. I have explained to them that he currently does not require any higher level of care however they want him to be seen by his own physicians. Gen. appearance: Obese, drowsy but arousable HEENT: Anicteric, no pallor, thick neck circumference Chest: Fair entry bilaterally, clear to auscultation, S/P reproducible along the left side lateral chest report. Abdomen: Obese, soft, normal bowel sounds Extremities: No pedal edema. Neurologic: No focal deficits. Laboratory Tests 06/05/16 0740: Anion Gap 9, Estimated GFR > 60, BUN/Creatinine Ratio 20.0, Magnesium 1.8 06/04/16 1245: Urine Opiates Screen 279.00, Methadone Screen < 40, Barbiturate Screen < 60, Ur Phencyclidine Scrn < 6.00, Amphetamines Screen < 100, U Benzodiazepines Scrn > 800 H, Urine Cocaine Screen > 1000 H, Urine Cannabis Screen < 5.00 Problems: 1. Seizure 2. Recurrent syncope 3. Active cocaine user. 4. Ischemic cardiomyopathy with reduced ejection fraction heart failure status post AICD placement. 5. Undiagnosed obstructive sleep apnea. 6. Reproducible chest pain Plan: -Obtain rib series to rule out underlying left-sided fractures -Case discussed with the hospitalist service at [facility]. Patient has been accepted by Dr. Hill. He will be transferred once a bed becomes available. -Please note the following recommendations for transfer: -He will require interrogation of his AICD. -He will require formal sleep studies. -He will require an EEG -He requires further counseling regarding abstinence from cocaine use particularly considering his underlying cardiac condition.
--- NOTE | 2016-06-05 12:42 | RADIOLOGY REPORT ---
EXAMINATION: XR RIBS, LEFT CLINICAL INFORMATION: Diffuse left rib pain. Evaluate for costochondritis versus injury from seizures. COMPARISON: Chest x-ray dated 06/04/2016. Left ribs dated 06/08/2012. TECHNIQUE: Frontal view of the chest and 5 oblique views of the left ribs were obtained. FINDINGS: Right atrial pacer lead and right ventricular ICD lead are unchanged in position. The cardiomediastinal silhouette is within normal limits in size. Lungs bilaterally are symmetrically expanded and clear. No effusion or pneumothorax is seen. Old healed fracture deformity of the distal left clavicle is again noted. Lower cervical spine fusion hardware is also unchanged. No rib fracture or abnormal periosteal reaction is seen. IMPRESSION: No evidence of rib fracture.
--- NOTE | 2016-06-05 16:17 | PN- Cardiology ---
Subjective Subjective: The patient's defibrillator was interrogated last evening to determine if there were any recent arrhythmias documented. I have reviewed this and it shows no episodes of ventricular tachycardia, ventricular fibrillation or atrial fibrillation. He is very rarely paced at all. Today he is somewhat somnolent but arousable. He is only complaining of back pain. He denies any chest pain or shortness of breath. Apparently there have been no further seizures documented. His blood pressure was elevated earlier but is now back in near normal range. He did receive some Norvasc. Objective Vital Signs and I&Os Vital Signs Date Time Temp Pulse Resp B/P Pulse O2 O2 Flow FiO2 Ox Delivery Rate 06/05 1608 87 138/90 06/05 1549 98.6 87 20 138/90 95 06/05 1400 97.5 81 18 120/77 06/05 1200 98.1 94 18 130/18 06/05 1012 94 130/81 06/05 1000 97.5 81 18 120/77 06/05 0804 98.1 94 18 130/81 94 Room Air 06/05 0800 97.5 81 18 120/77 06/05 0533 108 137/95 06/05 0403 97.6 106 20 172/98 93 Room Air 06/05 0400 106 172/98 06/05 0008 98.3 92 18 146/100 94 Room Air 06/05 0000 92 148/100 06/04 2148 94 150/107 06/04 1844 98.2 83 16 148/88 95 Room Air 06/04 1800 98.2 106 18 124/72 06/04 1748 106 124/72 Intake & Output 06/05 1600 06/05 0800 06/05 0000 06/04 1600 06/04 0800 06/04 0000 Intake Total 1440 480 480 550 120 200 Output Total 200 100 Balance 1440 480 480 350 120 100 Intake, Oral 1440 480 480 550 120 200 Number 2 0 Bowel Movements Output, Urine 200 100 Patient 250 lb Weight Physical Exam: He is somnolent but arousable and snoring HEENT exam grossly normal Chest clear to limited exam Heart regular rhythm no murmurs Current Medications: Current Medications Sig/Nadia Start time Last Medication Dose Route Stop Time Status Admin Acetaminophen 650 MG .STK-MED ONE 06/04 2155 DC PO 06/04 2156 Acetaminophen 650 MG Q6P PRN 02/17 2145 AC PO Amlodipine Besylate 5 MG ONCE ONE 06/05 0430 DC PO 06/05 0431 Aspirin 81 MG DAILY 06/04 1000 AC 06/05 PO 1010 Carvedilol 25 MG BID 06/04 1000 DC 06/04 PO 1107 Folic Acid 1 MG DAILY 06/04 1000 AC 06/05 PO 1010 Heparin Sodium 5,000 UNIT Q8 06/04 0600 AC 06/05 (Porcine) SC 1500 Isosorbide Dinitrate 20 MG TID 06/03 2330 AC 06/05 PO 1608 Lorazepam 2 MG Q8 06/03 2200 AC 06/05 PO 1521 Lorazepam 0 Q1P PRN 06/03 2200 AC 06/05 IV 0429 Nicotine 14 MG DAILY 06/05 1227 AC 06/05 TOP 1520 Omeprazole 20 MG BID 06/04 1000 AC 06/05 PO 1010 Oxycodone/ 1 TAB Q6P PRN 06/03 2145 AC 06/05 Acetaminophen PO 0429 Oxycodone/ 2 TAB Q6P PRN 06/03 2145 AC 06/03 Acetaminophen PO 2230 Sertraline HCl 150 MG DAILY 06/04 1000 AC 06/05 PO 1010 Thiamine HCl 100 MG DAILY 06/04 1000 AC 06/05 PO 1010 Results Last 48 Hrs of Labs/Mics: Laboratory Tests 06/05/16 0740: Anion Gap 9, Estimated GFR > 60, BUN/Creatinine Ratio 20.0, Magnesium 1.8 06/04/16 1245: Urine Opiates Screen 279.00, Methadone Screen < 40, Barbiturate Screen < 60, Ur Phencyclidine Scrn < 6.00, Amphetamines Screen < 100, U Benzodiazepines Scrn > 800 H, Urine Cocaine Screen > 1000 H, Urine Cannabis Screen < 5.00 06/04/16 0730: Anion Gap 10, Estimated GFR > 60, BUN/Creatinine Ratio 20.0, CBC w Diff NO MAN DIFF REQ, RBC 5.64, MCV 92.9, MCH 31.2 H, RDW 16.0 H, MPV 8.5, Gran % 76.9 H, Lymphocytes % 7.7 L, Monocytes % 11.8 H, Eosinophils % 3.3, Basophils % 0.3, Absolute Granulocytes 4.4, Absolute Lymphocytes 0.4 L, Absolute Monocytes 0.7 H, Absolute Eosinophils 0.2, Absolute Basophils 0, PUBS MCHC 33.6 06/04/16 0105: Lactic Acid 0.8 06/04/16 0105: Anion Gap 12, Estimated GFR > 60, BUN/Creatinine Ratio 18.3 06/03/16 2229: Methadone Screen Cancelled, Barbiturate Screen Cancelled, Ur Phencyclidine Scrn Cancelled, Amphetamines Screen Cancelled, U Benzodiazepines Scrn Cancelled, Urine Cocaine Screen Cancelled, Urine Cannabis Screen Cancelled 06/03/16 1615: Anion Gap 16, Estimated GFR 54 L, BUN/Creatinine Ratio 17.1, Glucose 160 H, Lactic Acid 3.1 H, Calcium 9.3, Phosphorus 3.9, Magnesium 1.7, Total Bilirubin 1.3, AST 40, ALT 56, Alkaline Phosphatase 84, Troponin I < 0.01, Total Protein 7.5, Albumin 4.6, Globulin 2.9, Albumin/Globulin Ratio 1.6, Lipase 256, CBC w Diff NO MAN DIFF REQ, RBC 5.44, MCV 93.8, MCH 31.4 H, RDW 15.4 H, MPV 8.1, Gran % 78.2 H, Lymphocytes % 6.8 L, Monocytes % 12.0 H, Eosinophils % 2.1, Basophils % 0.9, Absolute Granulocytes 7.1 H, Absolute Lymphocytes 0.6 L, Absolute Monocytes 1.1 H, Absolute Eosinophils 0.2, Absolute Basophils 0.1, PUBS MCHC 33.4, Serum Alcohol 19.0 Assessment/Plan Assessment/Plan The patient is stable from a cardiac standpoint. His defibrillator is active but has not detected any arrhythmias nor is he being paced very much. His current presentation appears to be solely on the basis of alcohol and drug abuse. Please call for further cardiac input if needed. Continue telemetry? Not applicable
--- NOTE | 2016-06-05 23:34 | Event Note ---
Event Note Event Note: I was told by the nurse that the patient fell down from the bed, when he was getting down and slept on the floor and hit his buttock.I went there and examined the patient. His vitals were -temperature 98.8, pulse 112, respiration 20, blood pressure 160/90, SPO2 94%. Blood sugar was 133 and EKG shows no any new changes. Patient was oriented to time, place and person. Denies any pain in legs and buttock, headache, palpitation, dizziness. He was very anxiouse and doesnt wanted to have bed alarm. As we want to prevent him from falling we will keep him under saftey monitor.
--- NOTE | 2016-06-06 07:06 | PN- Housestaff ---
See Addendum Subjective Follow-up For: Alcohol withdrawal Alcohol related seizures Subjective: Patient is alert and oriented, he reports pain in the back on the rib cage on the left side. He reprots that he wants to leave despite our discussion that he still is not safe to be discharged home. Review of Systems Constitutional: Denies: chills, fever. EENTM: Reports: no symptoms. Cardiovascular: Denies: chest pain, palpitations. Respiratory: Reports: cough. Denies: short of breath. Gastrointestinal: Denies: abdominal pain, changes in stool. Genitourinary: Reports: no symptoms. Musculoskeletal: Reports: back pain (left side of the rib cage). Skin: Reports: no symptoms. Objective Last 24 Hrs of Vital Signs/I&O Vital Signs Date Time Temp Pulse Resp B/P Pulse O2 O2 Flow FiO2 Ox Delivery Rate 06/05 2245 112 160/90 06/05 2242 98.8 112 20 160/90 94 Room Air 06/05 2200 98.8 112 20 160/90 06/05 1608 87 138/90 06/05 1549 98.6 87 20 138/90 95 06/05 1400 97.5 81 18 120/77 06/05 1200 98.1 94 18 130/18 06/05 1012 94 130/81 06/05 1000 97.5 81 18 120/77 Intake & Output 06/06 1600 06/06 0800 06/06 0000 Intake Total 600 Output Total Balance 600 Intake, Oral 600 Physical Exam General Appearance: Alert, Oriented X3, Cooperative, Mild Distress Skin: No Rashes HEENT: Atraumatic, EOMI Neck: Supple Cardiovascular: Regular Rate, Normal S1, Normal S2, No Murmurs Lungs: rhonchi scattered bilaterally Abdomen: Soft, No Tenderness Neurological: Normal Tone, Sensation Intact, Cranial Nerves 3-12 NL Extremities: No Edema, Normal Pulses Vascular: Normal Pulses, Pulses Symmetrical Current Medications: Current Medications Sig/Nadia Start time Last Medication Dose Route Stop Time Status Admin Acetaminophen 650 MG Q6P PRN 06/03 2145 AC PO Aspirin 81 MG DAILY 06/04 1000 AC 06/05 PO 1010 Folic Acid 1 MG DAILY 06/04 1000 AC 06/05 PO 1010 Heparin Sodium 5,000 UNIT Q8 06/04 0600 AC 06/06 (Porcine) SC 0708 Ibuprofen 400 MG ONCE ONE 06/06 0815 AC 06/06 PO 06/06 0816 0808 Isosorbide Dinitrate 20 MG TID 06/03 2330 AC 06/05 PO 2245 Lorazepam 2 MG Q8 06/03 2200 AC 06/06 PO 0706 Lorazepam 0 Q1P PRN 06/03 2200 AC 06/06 IV 0138 Nicotine 14 MG DAILY 06/05 1227 AC 06/05 TOP 1520 Omeprazole 20 MG BID 06/04 1000 AC 06/05 PO 2245 Oxycodone/ 1 TAB Q6P PRN 06/03 2145 AC 06/05 Acetaminophen PO 0429 Oxycodone/ 2 TAB Q6P PRN 06/03 2145 AC 06/03 Acetaminophen PO 2230 Sertraline HCl 150 MG DAILY 06/04 1000 AC 06/05 PO 1010 Thiamine HCl 100 MG DAILY 06/04 1000 AC 06/05 PO 1010 Last 24 Hrs of Lab/Huber Results Last 24 Hrs of Labs/Mics: Laboratory Tests 06/06/16 0658: Sodium Pending, Potassium Pending, Chloride Pending, Carbon Dioxide Pending, Anion Gap Pending, BUN Pending, Creatinine Pending, BUN/Creatinine Ratio Pending , CBC w Diff Pending, WBC Pending, RBC Pending, Hgb Pending, Hct Pending, MCV Pending, MCH Pending, RDW Pending, Plt Count Pending, MPV Pending, PUBS MCHC Pending Assessment/Plan Assessment: This is a 51-year-old gentleman with past medical history as well as multiple substance abuse who presented to the emergency department following decreased mentation and consciousness likely attributed due to subclinical seizures or syncope. Patient left AMA today, we discussed with the patient and the family the concerns and the dangers of leaving the hospital without getting transferred to another facility, including . Patient was adamant about leaving. Alcohol Related Seizures Consuming approximately 1 pint of vodka per day. His last alcoholic drink was on 06/03/2016. * Ativan per [facility] * Urinary toxicology showed elevated cocaine and benzos * thiamine and folic acid and multivitamins Possible seizures Patient reports episodes shaking and losing consciousness with alcohol withdrawal. however remembers his body shakes, which makes seizures unlikely. * F/U EEG - patient left AMA before EEG was performed History of AICD and nonischemic cardiomyopathy Patient is on Coreg and has a history of cocaine abuse. * Cardiology consult regarding continuation of Coreg * F/U Urine toxicology Hyponatremia - stable On admission patient's sodium level was 130. Likely due to decreased by mouth intake and dehydration. Patient received gentle hydration, today Na 132. * Repeat BEP in a.m. * Avoid rapid correction of sodium over the 24 hour period. Limited to less than 8 mEq over 24 hours. History of hypertension Hold lisinopril and Aldactone due to elevation in creatinine (1.4). * Monitor BEP in a.m. * Once creatinine results can resume medications. Diet * heart healthy DVT prophylaxis * Lovenox Code * full code Problem List: 1. Alcohol withdrawal seizure 2. Polysubstance abuse 3. Hypertension 4. Cocaine abuse Pain Ratin Pain Location: tylenol ibuprofen Pain Goal: Pain 4 or less Pain Plan: tylenol, ibuprofen, percocet Tomorrow's Labs & Rationales: none
[2016-06-06 08:17] VITALS: BP 158/88
[2016-06-06 08:28] LABS: ABSOLUTE BASOPHIL COUNT 0 /CUMM (0.0-0.2); ABSOLUTE EOSINOPHIL COUNT 0.2 /CUMM (0.0-0.7); ABSOLUTE GRANULOCYTE CT 4.2 /CUMM (1.4-6.5); ABSOLUTE MONOCYTE COUNT 0.7 /CUMM (0.10-0.60); BASOPHIL % 0.6 % (0.0-2.0); EOSINOPHIL % 3.2 % (0-5); GRANULOCYTE % 69.2 % (42.2-75.2); HEMATOCRIT 48.9 % (42-52); MEAN CORPUSCULAR HGB 31.8 PG (27.0-31.0); MEAN CORPUSCULAR HGB CONC 33.9 G/DL (33.0-37.0); MEAN CORPUSCULAR VOLUME 93.7 FL (80.0-94.0); MEAN PLATELET VOLUME 8.3 FL (7.4-10.4); PLATELET COUNT 164 /CUMM (130-400); RBC DISTRIBUTION WIDTH 15.6 % (11.5-14.5); RED BLOOD CELL CT 5.21 /CUMM (4.70-6.10); WHITE BLOOD CELL COUNT 6.1 /CUMM (4.8-10.8)
--- NOTE | 2016-06-06 09:54 | Patient Discharge Instructions ---
Discharge Instructions General Discharge Information You were seen/treated for: ALcohol withdrawal Special Instructions: Please follow up with you PCP GRZEGORZ. Please go directly to [facility] from [facility] as requested. Diet Continue normal diet: Yes Activity Activity Self Limited: Yes Acute Coronary Syndrome Inclusion Criteria At DC or during hospital stay patient has or had the following: ACS DIAGNOSIS No Discharge Core Measures Meds if any: Prescribed or Continued at Discharge Meds if any: NOT Prescribed or Continued at Discharge Congestive Heart Failure Inclusion Criteria At DC or during hospital stay patient has or had the following: CHF DIAGNOSIS No Discharge Core Measures Meds if any: Prescribed or Continued at Discharge Meds if any: NOT Prescribed or Continued at Discharge Cerebrovascular accident Inclusion Criteria At DC or during hospital stay patient has or had the following: CVA/TIA Diagnosis No Discharge Core Measures Meds if any: Prescribed or Continued at Discharge Meds if any: NOT Prescribed or Continued at Discharge Venous thromboembolism Inclusion Criteria VTE Diagnosis No VTE Type NONE VTE Confirmed by (Test) NONE Discharge Core Measures - Per Current guidelines, there needs to be overlap - treatment for the first 5 days of Warfarin therapy. - If discharged on Warfarin prior to 5 days of - overlap therapy, the patient will need to be - assessed for post discharge needs including - *Post discharge parental anticoagulation - *Warfarin and/or parental anticoagulation education - *Follow up date to check INR post discharge At least 5 days overlap therapy as Inpatient No Meds if any: Prescribed or Continued at Discharge Note: Overlap Therapy is Warfarin and Anticoagulant Meds if any: NOT Prescribed or Continued at Discharge
[2016-06-06] MEDS ORDERED: FOLIC ACID0.8 M2 PO (09:56)
[2016-06-06] MEDS ORDERED: VITAMIN B122500 MC1 PO (09:56)
--- NOTE | 2016-06-06 10:00 | Discharge Summary ---
See Addendum Visit Information Visit Dates Admission Date: 06/03/16 Discharge Date: 06/06/16 Hospital Course Course Attending Physician: GLORIA PIKE,PETE Amin [facility]: 51-year-old gentleman with PMH of EtOH dependence, cocaine abuse, HTN, history of alcohol G seizures, pancreatitis and tobacco dependence at 1 PPD. He does have an extensive cardiac history including nonischemic cardiomyopathy, s/p defibrillator implantation. This is a [employer] CD [id number] defibrillator implanted 05/03/2013 at [facility] by Dr. Fletcher Buchanan, currently followed by Dr. Fanny Lyles. This is not a biventricular device. The patient's last ejection fraction was 50-55% on 05/09/2016. Previously he had had an ejection fraction in the 10-15% range in 2013 and that is when he had his defibrillator implanted. He also had sustained ventricular tachycardia runs at that time. He presented to [facility] ED with concerns for withdrawal seizure. Information on admission was obtained from the patient's family member due to his clinical condition. Reported 2 episodes of unwitnessed falls prior to admission associated with left-sided chest discomfort but no LOC. His brother also noted 2 spontaneous episodes of "blacking out "with his eyes rolled back into his head and the patient becoming slightly unresponsive slumping to the table. One day prior to admission he went to [facility] for detox but due to long wait times the patient left AMA. Reports indicate a daily alcohol consumption of approximately 1 pint of hard liquor and the patient acknowledged last cocaine use 3-4 days prior to admission , noticeable shortness of breath at night and progressive dyspnea with exertion. VS on admission: BP 117/79, HR 102, RR 20, SPO2 96% on RA, T 96.2 Physical exam on admission: He is arousable to verbal commands. RRR, normal S1/ S2. Mild expiratory stridor/reason, diminished breath sounds in the basilar regions bilaterally. Normal bowel sounds, tenderness to palpation of the left upper quadrant/left flank. 1+ edema bilateral lower extremities. No evidence of focal neurologic deficits. Pertinent labs: WBC 9.1, H&H 17.1/51.0, platelets 135, sodium 130, potassium 4.0 , chloride 90, BUN/CR 20/1.4 Urine tox: Pending CXR: Unremarkable Head CT: Unremarkable Admitted the patient to general medicine for management of the following Problem list: 1. Alcohol withdrawal with questionable withdrawal seizure 2. Cocaine use 3. History of CAD/CHF: EF 50-55% (05/09/2016) 4. Dyspnea 5. Acute kidney injury 6. Hyponatremia 7. Elevated lactic acid Hospital course: 1. Alcohol withdrawal with questionable withdrawal seizure * We started the patient on Ativan per [facility] protocol, thiamine and folate supplementation, maintain seizure prophylaxis with the plan EEG on Monday. 2. Cocaine use * The setting of his cardiac history, currently on Coreg and a positive urine tox for cocaine, the patient was strongly advised about the risks associated with substance abuse 3. History of CAD/CHF: EF 50-55% (05/09/2016) * Patient was evaluated by Dr. Christina during this admission. In the setting of negative troponins, unchanged EKG and unremarkable interrogation of his device the patient was cleared from a cardiac standpoint 4. Acute kidney injury * A slight creatinine of 1.0, up to 1.4 on admission which he received hydration with normal saline with complete resolution of ELENI 6. Hyponatremia * Sodium of 130 on admission. His new baseline appears to be around 136. With gentle hydration this remained relatively stable 7. Elevated lactic acid * Initially on admission lactic acid of 3.1 which trended down to 0.8 s/p fluid hydration Complications: Mechanical fall during admission: * On hospital day #2 the patient suffered a mechanical fall when he slipped on the floor with no subsequent injury Leaving AGAINST MEDICAL ADVICE: * Hospital day #2: The patient and family member insisted on him leaving despite an incomplete alcohol detox. Benefits associated with staying were addressed with the patient and family member as well as the risks involved with leaving prior to a complete alcohol detox. Patient and his daughter (POA) expressed clear understanding of all potential risks and took full responsibility. Allergies: Coded Allergies: NO KNOWN ALLERGIES (06/03/16) Disposition Summary Disposition Principal Diagnosis: Alcohol withdrawal and possible related seizure Additional Diagnosis: Acute kidney injury Cocaine abuse Discharge Disposition: left against medical adv Discharge Instructions General Discharge Information Code Status: Full Code Patient's Diet: Heart healthy Patient's Activity: As tolerated Follow-Up Instructions/Appts: Please follow-up with PCP within 1-2 weeks after discharge. Please follow-up with your lead nurse at next scheduled appointment. In the setting of leaving AGAINST MEDICAL ADVICE, instructions were provided to the patient's family to go directly to [facility] as the patient had requested to avoid potential complications including seizure, fall with resultant trauma or . Medications at Discharge Discharge Medications: Continue taking these medications: HYDRALAZINE HCL (Hydralazine HCl) 25 MG TABLET 1 Tablet ORAL THREE TIMES DAILY Comments: Last Taken Date: 09/19/13 Last Taken Time: 1600 Magnesium Oxide (Magnesium Oxide) 400 MG TABLET 1 Tablet ORAL TWICE DAILY Qty = 60 Comments: Last Taken Date: 09/19/13 Last Taken Time: 1000 Spironolactone (Aldactone 25 MG Tablet) 25 MG TABLET 0.5 Tablet ORAL DAILY Comments: Last Taken Date: 09/19/13 Last Taken Time: 1000 Isosorbide Dinitrate (Isordil (Sorbitrate 20MG)) 20 MG TABLET 1 Tablet THREE TIMES DAILY Comments: Last Taken Date: 09/19/13 Last Taken Time: 1600 Omeprazole (Omeprazole) 20 MG TABLET.DR 1 Tablet ORAL TWICE DAILY Comments: GIVEN 05/11/16 @ 0648 Sertraline HCl (Sertraline HCl) 100 MG TABLET 1.5 Tablet ORAL DAILY Qty = 135 Comments: GIVEN 05/11/16 @ 1035 Clindamycin Phosphate (Clindamycin Phosphate) 60 ML SOLUTION 1 Application On the skin DAILY Qty = 60 Instructions: apply to affected area(s) Comments: NOT TAKEN AT HOSPITAL Potassium Chloride (Potassium Chloride) 10 MEQ TABLET.ER 2 Tablet ORAL TWICE DAILY Qty = 360 Comments: NOT TAKEN AT HOSPITAL Docusate Sodium (Colace) 100 MG CAPSULE 1 Capsule ORAL as needed for STOOL SOFTENER Qty = 80 Comments: DID NOT TAKE AT HOSPITAL Carvedilol (Carvedilol) 25 MG TABLET 1 Tablet ORAL TWICE DAILY Qty = 180 Comments: NOT GIVEN IN HOSPITAL Methylcellulose (Fiber) (Unknown Strength) TABLET Unknown Dose ORAL DAILY Comments: NOT TAKEN AT HOSPITAL Cholecalciferol (Vitamin D3) (Vitamin D) (Unknown Strength) TABLET Unknown Dose ORAL DAILY Comments: NOT GIVEN IN HOSPITAL Aspirin (Aspirin*) 81 MG TAB.CHEW 81 Milligram ORAL DAILY Qty = 30 Comments: Last Taken: 06/06/16 Time: 0815 Lisinopril (Lisinopril) 10 MG TABLET 1 Tablet ORAL DAILY Qty = 30 Comments: Last Taken: 12/13/15 Time: 10:00AM Start taking the following new medications: Folic Acid (Folic Acid) 0.8 MG TABLET 1 Tablet ORAL DAILY Days = 30 No Refills Cyanocobalamin (Vitamin B-12) (Vitamin B12) 2,500 MCG TABLET 1 Tablet ORAL DAILY Days = 30 No Refills Copies To: GLORIA IPKE,PETE Amin; LORI PIKE,FANNY Gonzalez; LELAND PIKE,Celina GIBSON
== END 2016-06-06 10:05 | disposition left against medical advice (07) | DRG 894 ==
LOC: ERH 15:01 → 2NB 18:57 → ERHI 18:57 → 2NB 20:21
PROVIDERS: Emergency Medicine; Internal Medicine; Student in an Organized Health Care Education/Training Program; ADMIT Internal Medicine
DX: F10.239 Alcohol dependence with withdrawal, unspecified (principal); N17.9 Acute kidney failure, unspecified; E87.2 Acidosis; I42.9 Cardiomyopathy, unspecified; I11.0 Hypertensive heart disease with heart failure; I50.22 Chronic systolic (congestive) heart failure; E66.01 Morbid (severe) obesity due to excess calories; E87.1 Hypo-osmolality and hyponatremia; F19.10 Other psychoactive substance abuse, uncomplicated; R56.9 Unspecified convulsions; Y90.0 Blood alcohol level of less than 20 mg/100 ml; Z68.39 Body mass index [BMI] 39.0-39.9, adult; F14.10 Cocaine abuse, uncomplicated; Z95.810 Presence of automatic (implantable) cardiac defibrillator; F17.210 Nicotine dependence, cigarettes, uncomplicated
CPT/HCPCS: 2NBSP; 36415; 71100-LT; 80307; 82436; 93005; 93010; 96374; G0480; J1644; J3490; J7040